=== PATIENT | male | born 1960 | race Caucasian/White ===

== ENCOUNTER → 2020-04-14 13:57 | Outpatient (BNVA) | payer OTHER, SELFPAY | PROVIDERS: PCP Internal Medicine; Visit Provider Hospitalist | DX: Z76.89 Persons encountering health services in other specified circumstances (principal) ==

== ENCOUNTER → 2020-06-02 12:48 | Outpatient (BNVA) | payer OTHER, SELFPAY | PROVIDERS: PCP Internal Medicine; Visit Provider Hospitalist ==

== ENCOUNTER → 2020-06-27 08:47 | Outpatient (REF) | payer OTHER, SELFPAY | LOC: HO.SL 08:47 | PROVIDERS: PCP Internal Medicine; Visit Provider Hospitalist | DX: G47.33 Obstructive sleep apnea (adult) (pediatric) (principal); R91.8 Other nonspecific abnormal finding of lung field | CPT/HCPCS: 95806 ==

== ENCOUNTER → 2020-09-01 14:37 | Outpatient (BNVA) | payer OTHER, SELFPAY | PROVIDERS: PCP Internal Medicine; Visit Provider Hospitalist | DX: R91.8 Other nonspecific abnormal finding of lung field (principal); G47.33 Obstructive sleep apnea (adult) (pediatric); J44.9 Chronic obstructive pulmonary disease, unspecified ==

== ENCOUNTER → 2021-02-23 10:22 | Outpatient (BNVA) | payer OTHER, SELFPAY | PROVIDERS: PCP Internal Medicine; Visit Provider Hospitalist | DX: G47.33 Obstructive sleep apnea (adult) (pediatric) (principal); J45.51 Severe persistent asthma with (acute) exacerbation; J33.9 Nasal polyp, unspecified; R91.8 Other nonspecific abnormal finding of lung field | CPT/HCPCS: J2930 ==

== ENCOUNTER → 2021-05-04 15:09 | Outpatient (BNVA) | payer OTHER, SELFPAY | PROVIDERS: PCP Internal Medicine; Visit Provider Hospitalist ==

== ENCOUNTER → 2022-05-24 13:54 | Outpatient (BNVA) | payer OTHER, SELFPAY | PROVIDERS: PCP Internal Medicine; Visit Provider Hospitalist | DX: Z13.89 Encounter for screening for other disorder (principal) ==

== ENCOUNTER 2023-03-19 10:54 | Outpatient (AMB) | payer OTHER, SELFPAY ==
[2023-03-19 11:15] VITALS: BP 110/60; PULSE 110; O2SAT 94; BMI 33.7
--- NOTE | 2023-03-19 11:15 | MHC.OFFVIS ---
Intake Vital Signs 03/19/23 11:15 Height 5 ft 7 in Weight 215 lb BMI 33.7 BP 110/60 Blood Pressure Location Rt brachial Position Sitting Pulse 110 H Pulse Source Pulse Oximeter Pulse Oximetry (%) 94 Oxygen Delivery Method Room Air Intake Visit Reasons: dyspnea Dynamiter Required: No Maintenance Shop Clerk: Maintenance Shop Clerk offered & declined Accompanied by: Spouse Allergies aspirin Allergy (Severe, Verified 03/19/23 11:20) Asthma NSAIDS (Non-Steroidal Anti-Inflamma Allergy (Severe, Verified 03/19/23 11:20) Asthma Medication List - Last Reconciled 03/19/23 by Maribell East LPN albuterol sulfate 90 mcg/actuation 2 puffs PO Q6H PRN beclomethasone dipropionate 80 mcg/actuation (QNASL) 2 sprays intranasal DAILY benralizumab (Fasenra Pen) 30 mg subcut Q8W epinephrine (EpiPen 2-Bart) 0.3 mg (0.3 mL) IM Q10M PRN 30 days ffbzuiylcux-invqgivgp-hfhxfroy 200-62.5-25 mcg (Trelegy Ellipta) 1 ea PO DAILY HPI dyspnea HPI Details Sj is a pleasant 62 year old male, never smoker, with underlying asthma. At baseline, is well controlled on Trelegy, Qnasl, Fasenra and albuterol MDI/neb. Today he presents for an acute visit. He reports symptoms of nasal congestion, chest tightness, wheezing, dyspnea started last week, began improving and then worsened the last few days, now with chest congestion and nonproductive cough. He reports fever last night of 101 and using nebulizer q 4 hours with partial relief. Of note, he has been using albuterol. He reports daughter with similar symptoms. [facility] Medical History (Updated 03/19/23 @ 11:59 by Anjali Gordon NP) Pulmonary nodules Prostate cancer Nasal polyps Asthma (Updated 03/19/23 @ 11:25 by Maribell East LPN) Patient Tobacco Use Status: Never used Tobacco Smoked in Last 30 Days: No Review of Systems Const Denies chills, Denies excessive sweating, Denies headache(s) and Denies night sweats Eyes Denies dry eyes, Denies irritation and Denies itchy eyes ENT Reports Normal hearing present, Denies headache(s), Denies post nasal drip and Denies sore throat Card Denies chest pain, Denies chest pain at rest, Denies chest pain with activity, Denies claudication, Denies leg edema, Denies orthopnea and Denies paroxysmal nocturnal dyspnea Resp Denies excessive phlegm production, Denies pain on inspiration, Denies pain with cough and Denies stridor Musc Denies myalgias Neuro Reports Normal hearing present and Denies headache(s) Endo Denies excessive sweating Adriel/Lymph Denies lymphadenopathy Aller/Immun Denies itchy eyes and Denies seasonal rhinorrhea Physical Exam Vital Signs: Last Vital Signs Pulse 110 H 03/19/23 11:15 BP 110/60 03/19/23 11:15 Pulse Ox 94 03/19/23 11:15 Oxygen Delivery Method Room Air 03/19/23 11:15 BMI result Body Mass Index 33.7 Const General: cooperative, no acute distress, well developed and alert Orientation/consciousness: patient oriented x3 Limitations: no limitations HEENT Head: Yes normal to inspection, Yes normocephalic and Yes atraumatic Ears: hearing grossly normal bilaterally and external ears normal Eyes General: appearance normal, both eyes and all related structures Eyelids: Yes eyelids normal Sclerae: sclerae normal EOM: EOMs intact bilaterally Neck Neck: Yes normal visual inspection and Yes no lymphadenopathy Lymphatic: no lymphadenopathy noted Chest Chest palpation & inspection: normal inspection of the chest Resp Other: rhonchi and wheezing throughout, improved with duoneb Effort & Inspection: normal respiratory effort, able to speak in complete sentences, no audible wheezes, no stridor, not tachypneic, no tripod positioning and no use of accessory muscles Cardio Jugular venous distension: no JVD Rhythm: regular rhythm Skin Other: warm, dry General skin exam: no rashes or lesions noted Neuro General: patient oriented x3 Cranial nerves: Yes Normal hearing present Cognition (Neuro): normal cognition Gait exam (Neuro): Normal gait present Extrem General: Yes normal to inspection, Yes capillary refill normal, Yes no clubbing, cyanosis or edema and Yes no pedal edema Psych Appearance: grossly normal and well kempt Speech and movement: Normal speech and movement present and Clear speech present Affect: normal affect Attitude: cooperative Thought process: Normal thought process present Thought content: Normal thought content present Insight: Good insight present (Psych) Judgement: Good judgement present (Psych) Office Procedures Nebulizer Treatment Nebulizer Treatment 58340-Oclefywgd/MDI RX initial, or Nebulizer Subsequent Treatment Office Meds methylprednisolone sod suc(PF) 125 mg/2 mL solution for injection Performing Provider: Anjali Gordon NP Performing Location: [facility] [place] Pulmonology Services-[facility] Administered by: Maribell East LPN on 03/19/23 11:45 Dose Route Admin Location Dispensed Lot Number Expiration Date [facility] Certified Fire Investigator 125 mg IM right buttock 2 mL [id number] 07/26/25 3403-6116-21 [employer] ipratropium 0.5 mg-albuterol 3 mg (2.5 mg base)/3 mL nebulization soln Performing Provider: Anjali Gordon NP Performing Location: [facility] [place] Pul[facility]ology [facility] Administered by: Maribell East LPN on 03/19/23 11:45 Dose Route Admin Location Dispensed Lot Number Expiration Date [place] Certified Fire Investigator 3 mL inhalation 3 mL [id number] 01/25/25 08354-380-97 [employer] Assessment & Plan Assessment & Plan (1) Asthma: Code(s): J45.909 - Unspecified asthma, uncomplicated Qualifiers: Asthma severity: severe Asthma persistence: persistent Asthma complication type: uncomplicated Qualified Code(s): J45.50 - Severe persistent asthma, uncomplicated Plan Sj presents with an acute exacerbation with bronchitic symptoms. Respiratory exam improved after duoneb and patient reported symptomatic relief. Gave solumedrol in office. Will treat with prednisone and doxycycline. Will also send in current prescription of duoneb. Encouraged patient to obtain CXR today and continue current regimen of Fasenra along with Trelegy.Patient aware if symptoms do not improve to call and if worsen seek emergent care. All questions were answered and patient is in agreement of plan. Will follow up for regularly scheduled appointment with Dr. Zimmerman or sooner if needed. Orders: Orders AMB Nebulizer Treatment Today J45.909 - Unspecified asthma, uncomplicated, R05.9 - Cough, unspecified XR chest 2V Today R05.9 - Cough, unspecified AMB Methylprednisolone Injection Today J45.909 - Unspecified asthma, uncomplicated, R05.9 - Cough, unspecified Medications: New ipratropium-albuterol 0.5 mg-3 mg(2.5 mg base)/3 mL 3 mL inhalation Q6H PRN 90 mL 0RF wheezing doxycycline hyclate 100 mg PO BID 14 tabs 0RF Refilled albuterol sulfate 90 mcg/actuation 2 puffs PO Q6H PRN 34 grams 3RF for wheezing prednisone PO daily; Take 6 tabs daily x 3 days, then 5 tabs x 3 days, then 4 tabs x 3 days, then 3 tabs x 3 days, then 2 tabs daily x 3 days, then 1 tab x 3 days to complete. 18 days 63 tabs 0RF Coding Level of Care Code Est Pt Level 4 (69674) Diagnoses Severe persistent asthma without complication J45.50 Asthma severity: severe Asthma persistence: persistent Asthma complication type: uncomplicated CPT Codes Nebulizer Treatment - Nebulizer Treatment, initial or subsequent: 02023-Kedbypwzd/MDI RX initial, or Nebulizer Subsequent Treatment ([id number])
== END 2023-03-19 12:04 | disposition home or self-care (01) ==
PROVIDERS: PCP Internal Medicine; Visit Provider Nurse Practitioner Family
DX: J45.909 Unspecified asthma, uncomplicated (principal); R05.9 Cough, unspecified; J45.50 Severe persistent asthma, uncomplicated
CPT/HCPCS: 99214

== ENCOUNTER → 2023-03-19 10:54 | Outpatient (BNVA) | payer OTHER, SELFPAY | PROVIDERS: PCP Internal Medicine; Visit Provider Nurse Practitioner Family | DX: J45.50 Severe persistent asthma, uncomplicated (principal); Z79.899 Other long term (current) drug therapy | CPT/HCPCS: 94640; J2930 ==

== ENCOUNTER 2024-03-08 15:47 | Outpatient (REF) | payer OTHER, SELFPAY | END 2024-03-08 15:48 | disposition home or self-care (01) | LOC: HO.XRAY 15:47 | PROVIDERS: PCP Internal Medicine; Visit Provider Hospitalist | DX: J40 Bronchitis, not specified as acute or chronic (principal) | CPT/HCPCS: 71046 ==

== ENCOUNTER 2024-04-26 13:31 | Outpatient (AMB) | payer OTHER, SELFPAY ==
--- OUTSIDE RECORDS SUMMARY | 2024-04-26 13:35 | XMS_ITS ---
Author Organization [facility] Address [address] [place] [address] Care Team Providers Care Figurine Maker Name Role Phone GAVIN DUEÑAS Unavailable [phone] REASON FOR REFERRAL Reason Fatigue with [facility] Diagnosis 1 SOB (shortness of br eath) (R06.02) Diagnosis 2 Fatigue, unspecified type (R53.83) Referral Organization [facility] Referring Provider First Name GAVIN Referring Provider Last Name SPENSER Referring Provider Speciality Internal M edicine Referred Provider Specialty Cardiology General Notes [facility] [place], [address] [place] [id number], , FAX [phone] Clinical Notes Kaitlin Romero 2023 09:20:32 AM >all referral info sent to [facility], copy mailed to pt for record and FU, Kaitlin Romero 10/27/2023 09:55:44 AM >[facility] no longer accepting [facility], referral resent to [facility], called pt LVM with update, Lorene Bone 12/25/2023 09:14:43 AM > The patient was seen on 11/28/2023 Referral Priority Routine REASON FOR VISIT Lab review Encounters Encounter Location Date Provider Diagnosis [facility] [address] [place] [address] 10/21/2023 GAVIN DUEÑAS PLAN OF TREATMENT Referrals Referral Date Details Fatigue with [facility] Next Appt Details Provider Name:GAVIN DUEÑAS, 05/17/2024 03:30:00 PM, [address], [place], [address], Progress Notes * ALEXANDER BEARDOB:1960 (63 yo M)Acc No.[id number]:10/21/2023 Patient:??LION BEARD :1960?Age:63 Y?Sex:Ginny salter Address:[address] [place] [id number] Subjective: * Chief Complaints: * ?Lab review * Medical History:?? * Surgical History:?? * Hospitalization/Major Diagno stic Procedure:?? * Medications:?? Objective: Assessment: Plan: * Treatment: * Procedure Codes:?? * true * Date:?? Consultation Request Notes Referral Date Referring Provider Referred Provider Not vika 10/23/2023 GAVIN DUEÑAS , Fatigue with [facility]
--- OUTSIDE RECORDS SUMMARY | 2024-04-26 13:35 | XMS_ITS ---
Author Organization [facility] Address [address] [place] [address] Care Team Providers Care Resource Economist Name Role Phone KAVYA MANRIQUE Unavailable [phone] ALLERGIES No Known Allergies REASON FOR VISIT pt presents in office today for routine follow up with completed labs for review MEDICATIONS Medication SIG (Take, Route, Frequency, Duration) Notes Start Date End Date Status Probiotic 250 MG as directed Orally Active Multi Complete - as directed Orally Active Claritin 10 MG 1 tablet Orally Once a day Active Fasenra 30 MG/ML 1 null Subcutaneous monthly Active Trelegy Ellipta 100-62.5-25 MCG/INH 1 puff Inhalation Once a day Active Rosuvastatin Calcium 5 MG 1 tablet Orally Once a day for 30 days 05/12/2023 Not-Taking Qnasl 80 MCG/ACT 2 sprays in each nostril Nasally Once a day Active ProAir HFA 108 (90 Base) MCG/ACT 2 puffs as needed Inhalation every 6 hrs for 30 days Active Fish Oil 645 MG as directed Orally Active SOCIAL HISTORY Tobacco Use: Social History Observation Description Date Details (start date - stop date) Never Smoker NA - NA Sex Assigned At : Social History Observation Description Sex Assigned At Unknown Tobacco Use/Smoking Question Answer Notes Are you a nonsmoker VITAL SIGNS Heart Rate 75 /min 11/10/2023 Blood pressure systolic 134 mm Hg 11/10/19 24 Blood pressure diastolic 98 mm Hg 024 Weight 213.4 lbs 11/10/2023 BMI 33.42 kg/m2 11/10/2023 Height 67 in 11/10/2023 Oximetry 97 % 11/10/2023 Encounters Encounter Location Date Provider Diagnosis [facility] [address] [facility] [address] 11/10/2023 KAVYA MANRIQUE Hyperlipidemia, unspecified E78.5 ; Essential (primary) hypertension I10 and Other asthma J45.998 ASSESSMENTS Encounter Date Diagnosis Assessment Notes Treatment Notes Treatment Clinical Notes Section Notes 11/10/2023 Hyperlipidemia, unspecified (ICD-10 - E78.5) Patient with no new cardiovascular workup. Asthma hypertension hyperlipidemia currently stable and will continue current medications along with diet and exercise. He is now coping better with the passing of his mother and will deal with that through prayer exercise and meditation 11/10/2023 Essential (primary) hypertension (ICD-10 - I10) Patient with no new cardiovascular workup. Asthma hypertension hyperlipidemia currently stable and will continue current medications along with diet and exercise. He is now coping better with the passing of his mother and will deal with that through prayer exercise and meditation 11/10/2023 Other asthma (ICD-10 - J45.998) Patient with no new cardiovascular workup. Asthma hypertension hyperlipidemia currently stable and will continue current medications along with diet and exercise. He is now coping better with the passing of his mother and will deal with that through prayer exercise and meditation PLAN OF TREATMENT Pending Test Test Name Order Date LIPID PANEL, STANDARD 11/10/2023 COMPREHENSIVE METABOLIC PANEL 11/10/2023 CBC (INCLUDES DIFF/PLT) 11/10/2023 URINALYSIS, COMPLETE 11/10/2023 Next Appt Details Provider Name:KAVYA MANRIQUE, 05/17/2024 03:30:00 PM, [address] [facility], [place], [address], Progress Notes * ALEXANDER BEARDOB:1960 (63 yo M)Acc No.[id number]:11/10/2023 Progress Notes Patient:??LION BEARD Provider:??Kavya Manrique MD :1960?Age:63 Y?Sex:Ginny salter Date:11/10/2023 Address:[address] [place], [place] [id number] Subjective: * Chief Complaints: * ?1. Pt presents in offi ce today for routine follow up with completed labs for review. * HPI: ?Constitutional:? Patient seen and examined. Chart was reviewed and edited. Medications were reviewed. Problem list reviewed updated. Allergies reviewed. Social history reviewed. Reviewed recent labs and imaging business solutions consultant notes. Took permission to exam and offered contracting engineer. Patient past medical history of asthma currently stable complaint to me with fatigue and shortness of breath awaiting cardiovascular follow-up. His recent blood work was normal it was discussed with him in significant detail. Did could be a psychological reason for his shortness of breath with anxiety given the fact that his mother and he did not do well with it he has not been going to the gym which she should start doing. In the absence of pain I think he can continue to exercise but not push himself to severe exertion it should be mild to moderate exertion. * ROS:?All Other Systems:?Review of Systems (ROS)??All others negative except those mentioned in HPI.? * Medical History:??Prostate c ancer, Asthma. * Surgical History:??prostate cancer surgery , sinus surgery 2003 , spleen removed at age 17 . * Family History:??Father: keily raza, diagnosed with Unspecified essential hypertension.??Mother: alive.??3 brother(s) , 3 sister(s) . 1 daughter(s) . .?? siblings hx of dm, htn. * Social History:?Tobacco Use:??Tobacco Use/Smoking??Are you a??nonsmoker.?? * Medications:??Taking Fish Oi l 645 MG Capsule as directed Orally , Taking Probiotic 250 MG Capsule as directed Orally , Taking Multi Complete - Capsule as directed Orally , Taking Claritin 10 MG Tablet 1 tablet Orally Once a day , Taking Fasenra 30 MG/ML Solution Prefilled Syringe 1 null Subcutaneous , Notes to Pharmacist: monthly, Taking Trelegy Ellipta 100-62.5-25 MCG/INH Aerosol Powder Breath Activated 1 puff Inhalation Once a day , Taking Qnasl 80 MCG/ACT Aerosol Solution 2 sprays in each nostril Nasally Once a day , Taking ProAir HFA 108 (90 Base) MCG/ACT Aerosol Solution 2 puffs as needed Inhalation every 6 hrs , Not-Taking Rosuvastatin Calcium 5 MG Tablet 1 tablet Orally Once a day , Discontinued Celecoxib 200 MG Capsule 1 capsule with food Orally twice a day , Medication List reviewed and reconciled with the patient * Allergies:??N.K.D.A. Objective: * Vitals:??HR:75/min, BP:134/9 8mm Hg, Wt:213.4lbs, BMI:33.42Index, Ht: 67 in, Oxygen sat %:97%. * Physical Examination:?Patient seen and examined ?Vitals noted ?Head and ENT: PERRLA EOMI, neck supple, good range of motion, thyroid within normal limits. No sinus tenderness. ?Cardiovascular system S1 and S2 with no murmur or gallop or rubs. ?Lungs: clear to percussion and auscultation ?Abdomen: soft positive bowel sounds no hepatosplenomegaly ?Extremities: no edema. ?Neuro: No gross deficit, sensation and power intact. . Reflexes appear normal ?Gait: appears age-appropriate ?Skin: exam shows no rashes. Assessment: * Assessment: 1.??Hyperlipidemia, unspecif ied - E78.5??2.??Essential (primary) hypertension - I10??3.??Other asthma - J45.998?? Patient with no new cardiova scular workup. Asthma hypertension hyperlipidemia currently stable and will continue current medications along with diet and exercise. He is now coping better with the passing of his mother and will deal with that through prayer exercise and meditation. Plan: * Treatment: 2.??Essential (primary) hype rtension?LAB: COMPREHENSIVE METABOLIC PANEL ?LAB: CBC (INCLUDES DIFF/PLT) ?LAB: URINALYSIS, COMPLETE * Images: Billing Information: * Visit Code:?? 17387 Office Visit, Est Pt., Level 4. Modifiers: 25 * Procedure Codes:?? Care Plan Details* * Sign off status: Completed true * Provider:??Kavya Manrique MD Date:??11/09 History and Physical Notes * HPI (History of Present Illness) Category Sub-Category Detail Notes Category Not es Constitutional Patient seen and examined. Chart was reviewed and edited. Medications were reviewed. Problem list reviewed updated. Allergies reviewed. Social history reviewed. Reviewed recent labs and imaging business solutions consultant notes. Took permission to exam and offered contracting engineer. Patient past medical history of asthma currently stable complaint to me with fatigue and shortness of breath awaiting cardiovascular follow-up. His recent blood work was normal it was discussed with him in significant detail. Did could be a psychological reason for his shortness of breath with anxiety given the fact that his mother and he did not do well with it he has not been going to the gym which she should start doing. In the absence of pain I think he can continue to exercise but not push himself to severe exertion it should be mild to moderate exertion Physical Examination Category Sub-Category Detail Notes Section Note s Patient seen and examined Vitals noted Head and ENT: PERRLA EOMI, neck supple, good range of motion, thyroid within normal limits. No sinus tenderness. Cardiovascular system S1 and S2 with no murmur or gallop or rubs. Lungs: clear to percussion and auscultation Abdomen: soft positive bowel sounds no hepatosplenomegaly Extremities: no edema. Neuro: No gross deficit, sensation and power intact. . Reflexes appear normal Gait: appears age-appropriate Skin: exam shows no rashes
--- OUTSIDE RECORDS SUMMARY | 2024-04-26 13:35 | XMS_ITS | Patient Health Record ---
Author Organization [facility] Address [address] [place] [address] Care Team Providers Care Monogram Operator Name Role Phone GAVIN DUEÑAS Unavailable [phone] ALLERGIES No Known Allergies RESULTS Component Value Reference Range Notes Chest Routine 2 Views Reviewed date:10/17/2023 10:48:19 AM Interpretation: Performing Lab: Notes/Report: Original Ordering Provider: GAVIN DUEÑAS MD [facility] CBC With Differential/Platel et-[id number] Reviewed date:11/05/2023 10:44:58 AM Interpretation: Performing Lab:[facility], [address] [facility], [place], Phone - [phone], Director - Long Notes/Report: WBC 6.6 3.4-10.8 x10E3/uL RBC 5.09 4.14-5.80 x10E6/uL Hemoglobin 15.6 13.0-17.7 g/dL Hematocrit 46.1 37.5-51.0 % MCV 91 79-97 fL MCH 30.6 26.6-33.0 pg MCHC 33.8 31.5-35.7 g/dL RDW 13.6 11.6-15.4 % Platelets 209 150-450 x10E3/uL Neutrophils 41 Not Estab. % Lymphs 48 Not Estab. % Monocytes 11 Not Estab. % Eos 0 Not Estab. % Basos 0 Not Estab. % Immature Cells Neutrophils (Absolute) 2.7 1.4-7.0 x10E3/uL Lymphs (Absolute) 3.2 0.7-3.1 x10E3/uL Monocytes(Absolute) 0.7 0.1-0.9 x10E3/uL Eos (Absolute) 0.0 0.0-0.4 x10E3/uL Baso (Absolute) 0.0 0.0-0.2 x10E3/uL Immature Granulocytes 0 Not Estab. % Immature Grans (Abs) 0.0 0.0-0.1 x10E3/uL NRBC Hematology Comments: Sedimentation Rate-Mariselre n-[id number] Reviewed date:10/21/2023 01:54:05 PM Interpretation: Performing Lab:[facility] [place], [address] [place] [address], Phone - [phone], Director - Long Notes/Report: Sedimentation Rate-Deviergren 4 0-30 mm/hr Vitamin D, 80-Skcabls-[id number] Reviewed date:10/21/2023 01:54:05 PM Interpretation: [facility]forming [facility], [address] [place] [address], Phone - [phone], Director - Long Notes/Report: Vitamin D, 25-Hydroxy 43.7 30.0-100.0 ng/mL Vitamin D deficiency has been defined by the [place] [employer] and an Endocrine Society practice guideline as a level of serum 25-OH vitamin D less than 20 ng/mL (1,2). The Endocrine Society went on to further define vitamin D insufficiency as a level between 21 and 29 ng/mL (2). 1. IOM ([place] [employer]). 2010. Dietary reference intakes for calcium and D. [place]: The National Academies Press. 2. Shannan MF, Dennis [place], Chava GREEN, et al. Evaluation, treatment, and prevention of vitamin D deficiency: an Endocrine Society clinical practice guideline. JCEM. 2010; 96(7):1911-30. Lyme Disease Serology w/Refl ex-[id number] Reviewed date:10/21/2023 01:54:05 PM Interpretation: Performing Lab:[facility] [place], [address] [place] [address], Phone - [phone], Director - Long Notes/Report: Lyme Total Antibody MAHESH Negative Negative Lyme antibodies not detected. Reflex testing is not indicated. No laboratory evidence of infection with B. burgdorferi (Lyme disease). Negative results may occur in patients recently infected (less than or equal to 14 days) with B. burgdorferi. If recent infection is suspected, repeat testing on a new sample collected in 7 to 14 days is recommended. Lipid Panel-[id number] Reviewed date:11/05/2023 10:53:39 AM Interpretation: Performing Lab:[facility] [place], [address] [facility], [place], Phone - [phone], Director - Long Notes/Report: Cholesterol, Total 193 100-199 mg/dL Triglycerides 115 0-149 mg/dL HDL Cholesterol 43 >39 mg/dL VLDL Cholesterol Jameel 21 5-40 mg/dL LDL Chol Calc ([facility]) 129 0-99 mg/dL LDL Calc Comment: Comp. Metabolic Panel (14)-3 Reviewed date:11/05/2023 10:31:35 AM Interpretation: Performing Lab:[facility] [place], [address] [facility], [place], Phone - [phone], Director - Long Notes/Report: Glucose 92 70-99 mg/dL BUN 14 8-27 mg/dL Creatinine 0.85 0.76-1.27 mg/dL eGFR 99 >59 mL/min/1.73 BUN/Creatinine Ratio 16 10-24 Sodium 142 134-144 mmol/L Potassium 4.3 3.5-5.2 mmol/L Chloride 106 96-106 mmol/L Carbon Dioxide, Total 22 20-29 mmol/L Calcium 9.9 8.6-10.2 mg/dL Protein, Total 6.9 6.0-8.5 g/dL Albumin 4.4 3.9-4.9 g/dL Globulin, Total 2.5 1.5-4.5 g/dL Bilirubin, Total 0.7 0.0-1.2 mg/dL Alkaline Phosphatase 54 44-121 IU/L AST (SGOT) 25 0-40 IU/L ALT (SGPT) 30 0-44 IU/L PSA (Reflex To Free) (Serial )-[id number] Reviewed date:10/21/2023 01:54:14 PM Interpretation: Performing Lab:[facility] [place], [facility], [place], Phone - [phone], Director - Long Notes/Report: Prostate Specific Ag <0.1 0.0-4.0 ng/mL Brayan ECLIA methodology. . According to the [place] [employer], Serum PSA should decrease and remain at undetectable levels after radical prostatectomy. The AUA defines biochemical recurrence as an initial PSA value 0.2 ng/mL or greater followed by a subsequent confirmatory PSA value 0.2 ng/mL or greater. Values obtained with different assay methods or kits cannot be used interchangeably. Results cannot be interpreted as absolute evidence of the presence or absence of malignant disease. Reflex Criteria The percent free PSA is performed on a reflex basis only when the total PSA is between 4.0 and 10.0 ng/mL. REASON FOR REFERRAL Reason Fatigue with HFCCA Diagnosis 1 SOB (shortness of br eath) (R06.02) Diagnosis 2 Fatigue, unspecified type (R53.83) Referral Organization [facility] Referring Provider First Name NEDBIGG Referring Provider Last Name DUEÑAS Referring Provider Speciality Internal M edicine Referred Provider Specialty Cardiology General Notes [facility], [address] [facility], [place] [address], , FAX [phone] Clinical Notes Kaitlin Romero 2023 09:20:32 AM >all referral info sent to [facility], copy mailed to pt for record and FU, Kaitlin Romero 10/27/2023 09:55:44 AM >[facility] no longer accepting [facility], referral resent to [facility], called pt LVM with update, Lizandro Saltycresencio 12/25/2023 09:14:43 AM > The patient was seen on 11/28/2023 Referral Priority Routine MEDICATIONS Medication SIG (Take, Route, Frequency, Duration) Notes Start Date End Date Status Rosuvastatin Calcium 5 MG 1 tablet Orally Once a day for 30 days 05/12/2023 Not-Taking Qnasl 80 MCG/ACT 2 sprays in each nostril Nasally Once a day Active ProAir HFA 108 (90 Base) MCG/ACT 2 puffs as needed Inhalation every 6 hrs for 30 days Active Probiotic 250 MG as directed Orally Active Multi Complete - as directed Orally Active Fish Oil 645 MG as directed Orally Active Claritin 10 MG 1 tablet Orally Once a day Active Fasenra 30 MG/ML 1 null Subcutaneous monthly Active Trelegy Ellipta 100-62.5-25 MCG/INH 1 puff Inhalation Once a day Active SOCIAL HISTORY Tobacco Use: Social History Observation Description Date Details (start date - stop date) Never Smoker NA - NA Sex Assigned At : Social History Observation Description Sex Assigned At Unknown Tobacco Use/Smoking Question Answer Notes Are you a nonsmoker PROBLEMS Problem Type ICD Code Onset Dates Problem Status W/U Status Risk SNOMED Code Notes Problem Hyperlipidemia, unspecified (E78.5) Active confirmed Hyperlipidemia (54148573) Problem Essential (primary) hypertension (I10) Active confirmed 19559369 Problem Other asthma (J45.998) Active confirmed Asthma (049692757) Problem Left knee pain, unspecified chronicity (M25.562) Active confirmed 3200613049 Problem Anxiety (F41.9) Active confirmed 713371 02 Problem Fatigue, unspecified type (R53.83) Active confirmed 70532735 Problem Prostate cancer (C61) Active confirmed Malignant tumor of prostate (634958240) Problem SOB (shortness of breath) (R06.02) Active confirmed 967670369 Problem Pre-diabetes (R73.03) Active confirmed Prediabetes (355456759) Problem Stress reaction (F43.0) Active confirmed 03183403 VITAL SIGNS Heart Rate 75 /min 11/10/2023 Oximetry 97 % 11/10/2023 Blood pressure diastolic 98 mm Hg 11/10/2023 Height 67 in 11/10/2023 Blood pressure systolic 134 mm Hg 11/10/2023 Weight 213.4 lbs 11/10/2023 BMI 33.42 kg/m2 11/10/2023 Encounters Encounter Location Date Provider Diagnosis [facility] [address] [place] [address] 05/12/2023 TALBIGG DUEÑAS Pre-diabetes R73.03 ; Annual physical exam Z00.00 and Hyperlipidemia, unspecified E78.5 [facility] [address] [place] [address] 10/06/2023 TALAL DUEÑAS Prostate cancer C61 and Fatigue, unspecified type R53.83 [facility] [address] [facility] [address] [place] [address] 10/14/2023 TALAL DUEÑAS SOB (shortness of breath) R06.02 ; Upper back pain M54.9 and Prostate cancer C61 [facility] [address] [place] [address] 11/10/2023 TALBIGG DUEÑAS Hyperlipidemia, unspecified E78.5 ; Essential (primary) hypertension I10 and Other asthma J45.998 [facility] [address] [place] [address] 05/20/2023 GAVIN DUEÑAS [facility] [address] [place] [address] 10/02/2023 GAVIN DUEÑAS [facility] [address] [place] [address] 10/09/2023 GAVIN DUEÑAS [facility] [address] [place] [address] 10/21/2023 GAVIN DUEÑAS [address] [place] [address] 03/05/2024 GAVIN DUEÑAS ASSESSMENTS Encounter Date Diagnosis Assessment Notes Treatment Notes Treatment Clinical Notes Section Notes 05/12/2023 Annual physical exam (ICD-10 - Z00.00) Patient seen and examined. Comprehensive discussion was done on the following. 1. Nutrition: It is important to follow a healthy diet based on lots of vegetables and legumes and good fat. Avoid processed food and processed carbohydrates. Learn to prepare your own meals. Learn to read labels and avoid high fructose corn syrup, processed chemicals added to increase shelf life and preprepared meals. Avoid fast foods. Learn to eat slowly and plan meals for a week. Try to count calories and be mindful off daily calorie intake. Get into the habit of keeping an eye on your weight by using an appropriate scale. Learn to log exercise and discussed fitness Apps like [employer] which can help keep log off calories taken versus calories burned. Local food should be preferred. Discussed Dirty Dozen Versus Clean Fifteen. Discussed healthy supplements like fish oil, Tumeric, Curcumin, Melatonin, Resveratrol, Probiotics, Vitamin-D, Alpha-Lipoic acid, Vitamin-D and coconut oil. 2. It is important to exercise regularly. Is a good habit to walk at least 30-45 minutes a day. Gentle weightlifting with standard precautions to protect the back. Finding activity like cycling or hiking and get into the habit of engaging in it. Stretching before and after the exercises important. It is also important to contact me if there are any problems like shortness of breath, chest pain, back pain and joint or muscle pain associated with the exercise. 3. Discussed age appropriate screening guidelines. Colonoscopy needs to start at age 50 with stool for occult blood as appropriate. There is a new test that can test for genetic abnormalities in the stool sample. This would not replace a colonoscopy but could be used as a screening tool for patients who do not want a colonoscopy. We discussed the importance of early detection of colon cancer. 4. Discussed current PSA screening. PSA screening can be done in most patients between age 50 and 65. However early detection of prostate cancer needs to carefully be balanced with complications with treatment. These include incontinence, impotence etc. Each patient should decide if they would like to have this test. 5. Discussed safe driving and no use of smart phone while driving 6. Age-appropriate immunizations were discussed. A tetanus booster is needed every 10 years. Flu vaccine is recommended every year just before the start of the flu season. Shingles vaccine is recommended after age 50 but not all insurances cover it. Pneumonia vaccine is given after age 65 unless there are certain comorbidities for which it is started earlier. 7. Diagnostic labs were discussed. These could include CBC CMP and lipids with fasting blood glucose and insulin levels. Vitamin D and hemoglobin A1c testing might be appropriate. 05/12/2023 Pre-diabetes (ICD-10 - R73.03) Patient seen and examined. Comprehensive discussion was done on the following. 1. Nutrition: It is important to follow a healthy diet based on lots of vegetables and legumes and good fat. Avoid processed food and processed carbohydrates. Learn to prepare your own meals. Learn to read labels and avoid high fructose corn syrup, processed chemicals added to increase shelf life and preprepared meals. Avoid fast foods. Learn to eat slowly and plan meals for a week. Try to count calories and be mindful off daily calorie intake. Get into the habit of keeping an eye on your weight by using an appropriate scale. Learn to log exercise and discussed fitness Apps like Hot Hotels which can help keep log off calories taken versus calories burned. Local food should be preferred. Discussed Dirty Dozen Versus Clean Fifteen. Discussed healthy supplements like fish oil, Tumeric, Curcumin, Melatonin, Resveratrol, Probiotics, Vitamin-D, Alpha-Lipoic acid, Vitamin-D and coconut oil. 2. It is important to exercise regularly. Is a good habit to walk at least 30-45 minutes a day. Gentle weightlifting with standard precautions to protect the back. Finding activity like cycling or hiking and get into the habit of engaging in it. Stretching before and after the exercises important. It is also important to contact me if there are any problems like shortness of breath, chest pain, back pain and joint or muscle pain associated with the exercise. 3. Discussed age appropriate screening guidelines. Colonoscopy needs to start at age 50 with stool for occult blood as appropriate. There is a new test that can test for genetic abnormalities in the stool sample. This would not replace a colonoscopy but could be used as a screening tool for patients who do not want a colonoscopy. We discussed the importance of early detection of colon cancer. 4. Discussed current PSA screening. PSA screening can be done in most patients between age 50 and 65. However early detection of prostate cancer needs to carefully be balanced with complications with treatment. These include incontinence, impotence etc. Each patient should decide if they would like to have this test. 5. Discussed safe driving and no use of smart phone while driving 6. Age-appropriate immunizations were discussed. A tetanus booster is needed every 10 years. Flu vaccine is recommended every year just before the start of the flu season. Shingles vaccine is recommended after age 50 but not all insurances cover it. Pneumonia vaccine is given after age 65 unless there are certain comorbidities for which it is started earlier. 7. Diagnostic labs were discussed. These could include CBC CMP and lipids with fasting blood glucose and insulin levels. Vitamin D and hemoglobin A1c testing might be appropriate. 10/06/2023 Prostate cancer (ICD-10 - C61) Patient is comin g in with fatigue. Differential diagnosis is broad and could be statin induced myopathy although unlikely as it has persisted metastatic prostate cancer coronary artery disease and cardiomyopathy obstructive sleep apnea hypothyroidism Lyme disease vitamin D deficiency etc. we have initiated blood work referred to cardiology set up sleep study and will follow-up discussed in detail with the patient and 10/14/2023 SOB (shortness of breath) (ICD-10 - R06.02) 1. SOB : Patient has complaints of intermittent L shoudler pain and SOB for alissa past 2 months. Start Celebrex 200 mg bid x10 days for the pain. 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 Cardiac involvement was considered Patient had a negative EKGWe will continue to consider it in the differential diagnosis and will monitor the patient's symptoms.Patient should also complete the blood work that has been ordered for him Follow up in office in 2 months.. 11/10/2023 Hyperlipidemia, unspecified (ICD-10 - E78.5) Patient [...] with that through prayer exercise and meditation 10/14/2023 Upper back pain (ICD-10 - M54.9) 1. SOB : Patient has complaints of intermittent L shoudler pain and SOB for alissa past 2 months. Start Celebrex 200 mg bid x10 days for the pain. 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 Cardiac involvement was considered Patient had a negative EKGWe will continue to consider it in the differential diagnosis and will monitor the patient's symptoms.Patient should also complete the blood work that has been ordered for him Follow up in office in 2 months.. 10/06/2023 Fatigue, unspecified type (ICD-10 - R53.83) Patient is comin g in with fatigue. Differential diagnosis is broad and could be statin induced myopathy although unlikely as it has persisted metastatic prostate cancer coronary artery disease and cardiomyopathy obstructive sleep apnea hypothyroidism Lyme disease vitamin D deficiency etc. we have initiated blood work referred to cardiology set up sleep study and will follow-up discussed in detail with the patient and 05/12/2023 Hyperlipidemia, unspecified (ICD-10 - E78.5) Patient seen and examined. Comprehensive discussion was done on the following. 1. Nutrition: It is important to follow a healthy diet based on lots of vegetables and legumes and good fat. Avoid processed food and processed carbohydrates. Learn to prepare your own meals. Learn to read labels and avoid high fructose corn syrup, processed chemicals added to increase shelf life and preprepared meals. Avoid fast foods. Learn to eat slowly and plan meals for a week. Try to count calories and be mindful off daily calorie intake. Get into the habit of keeping an eye on your weight by using an appropriate scale. Learn to log exercise and discussed fitness Apps like Hot Hotels which can help keep log off calories taken versus calories burned. Local food should be preferred. Discussed Dirty Dozen Versus Clean Fifteen. Discussed healthy supplements like fish oil, Tumeric, Curcumin, Melatonin, Resveratrol, Probiotics, Vitamin-D, Alpha-Lipoic acid, Vitamin-D and coconut oil. 2. It is important to exercise regularly. Is a good habit to walk at least 30-45 minutes a day. Gentle weightlifting with standard precautions to protect the back. Finding activity like cycling or hiking and get into the habit of engaging in it. Stretching before and after the exercises important. It is also important to contact me if there are any problems like shortness of breath, chest pain, back pain and joint or muscle pain associated with the exercise. 3. Discussed age appropriate screening guidelines. Colonoscopy needs to start at age 50 with stool for occult blood as appropriate. There is a new test that can test for genetic abnormalities in the stool sample. This would not replace a colonoscopy but could be used as a screening tool for patients who do not want a colonoscopy. We discussed the importance of early detection of colon cancer. 4. Discussed current PSA screening. PSA screening can be done in most patients between age 50 and 65. However early detection of prostate cancer needs to carefully be balanced with complications with treatment. These include incontinence, impotence etc. Each patient should decide if they would like to have this test. 5. Discussed safe driving and no use of smart phone while driving 6. Age-appropriate immunizations were discussed. A tetanus booster is needed every 10 years. Flu vaccine is recommended every year just before the start of the flu season. Shingles vaccine is recommended after age 50 but not all insurances cover it. Pneumonia vaccine is given after age 65 unless there are certain comorbidities for which it is started earlier. 7. Diagnostic labs were discussed. These could include CBC CMP and lipids with fasting blood glucose and insulin levels. Vitamin D and hemoglobin A1c testing might be appropriate. 10/14/2023 Prostate cancer (ICD-10 - C61) 1. SOB : Patient has complaints of intermittent L shoudler pain and SOB for alissa past 2 months. Start Celebrex 200 mg bid x10 days for the pain. 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 Cardiac involvement was considered Patient had a negative EKGWe will continue to consider it in the differential diagnosis and will monitor the patient's symptoms.Patient should also complete the blood work that has been ordered for him Follow up in office in 2 months.. 11/10/2023 Other asthma (ICD-10 - J45.998) Patient with no new cardiovascular workup. Asthma hypertension hyperlipidemia currently stable and will continue current medications along with diet and exercise. He is now coping better with the passing of his mother and will deal with that through prayer exercise and meditation PLAN OF TREATMENT Pending Test Test Name Order Date X ray : Chest 10/14/2023 EKG 03/15/2022 CBC (COMPLETE BLOOD COUNT) 02/28/2020 CBC (COMPLETE BLOOD COUNT) 12/01/2018 CBC (COMPLETE BLOOD COUNT) WITH DIFF COMPREHENSIVE METABOLIC PANEL 12/17/2022 COMPREHENSIVE METABOLIC PANEL 12/01/2018 LIPID PANEL 12/01/2018 LIPID PANEL 02/28/2020 LIPID PANEL 12/17/2022 URINALYSIS W/REFLEX CULTURE 12/17/2022 URINALYSIS, COMPLETE 02/28/2020 URINALYSIS, COMPLETE 12/01/2018 XR Knee 4+ Views LT 05/30/2021 XR Ribs w Chest 3+ Views RT 05/08/2021 LIPID PANEL, STANDARD 09/21/2021 LIPID PANEL, STANDARD 03/15/2022 LIPID PANEL, STANDARD 09/11/2022 LIPID PANEL, STANDARD 05/12/2023 LIPID PANEL, STANDARD 11/10/2023 COMPREHENSIVE METABOLIC PANEL 11/10/2023 COMPREHENSIVE METABOLIC PANEL 03/15/2022 COMPREHENSIVE METABOLIC PANEL 05/12/2023 COMPREHENSIVE METABOLIC PANEL 09/21/2021 CBC (H/H, RBC, INDICES, WBC, PLT) 2020 CBC (INCLUDES DIFF/PLT) 09/21/2021 CBC (INCLUDES DIFF/PLT) 05/12/2023 CBC (INCLUDES DIFF/PLT) 03/15/2022 CBC (INCLUDES DIFF/PLT) 11/10/2023 URINALYSIS, COMPLETE 11/10/2023 URINALYSIS, COMPLETE 09/21/2021 URINALYSIS, COMPLETE 03/15/2022 SED RATE BY MODIFIED DEVIERGREN 10/06/19 24 HEMOGLOBIN A1c 03/15/2022 HEMOGLOBIN A1c 09/21/2021 HEMOGLOBIN A1c 09/11/2022 PSA (FREE AND TOTAL) 10/06/2023 PSA (FREE AND TOTAL) 03/15/2022 VITAMIN D,25-OH,TOTAL,IA 10/06/2023 LYME AB SCREEN 10/06/2023 Next Appt Details Provider Name:GAVIN DUEÑAS, 05/17/2024 03:30:00 PM, [address], [place], [address], Insurance Providers Payer Name Payer Address Payer Phone Subscriber Number Group Number Insured Name Patient Relationship to Insured Coverage Start Date Coverage End Date [facility] [address] [place] [address] [id number] LION BEARD Self - patient is the insured 3 MEDICAL (GENERAL) HISTORY Medical History History ICD Code prostate cancer asthma Surgical History Surgery Date(Month/Year) prostate cancer surgery sinus surgery 2003 spleen removed at age 17
--- OUTSIDE RECORDS SUMMARY | 2024-04-26 13:35 | XMS_ITS ---
Author Organization [employer] [facility] Address [address] [place] [address] Care Team Providers Care Actuarial Science Professor Name Role Phone GAVIN DUEÑAS Unavailable [phone] REASON FOR VISIT sweating profusely and colds Encounters Encounter Location Date Provider Diagnosis [address] [address] 03/05/2024 GAVIN DUEÑAS PLAN OF TREATMENT Next Appt Details Provider Name:GAVIN DUEÑAS, 05/17/2024 03:30:00 PM, [address], [place], [address], Progress Notes * CHIRAG JETHROJAISONOB:1960 (63 yo M)Acc No.[id number]:03/05/2024 Patient:??LION BEARD :1960?Age:63 Y?Sex:Ginny salter Address:[address] [place] [address] * true * Date:??
[2024-04-26 13:39] VITALS: BP 102/74; PULSE 66; O2SAT 94; BMI 33.5
--- NOTE | 2024-04-26 13:39 | A.OFFVIS_ITS ---
Vital Signs 04/26/24 13:39 Height 5 ft 7 in Weight 213 lb 13.574 oz BMI 33.5 BP 102/74 Blood Pressure Location Lt brachial Position Sitting Pulse 66 Pulse Source Pulse Oximeter Pulse Oximetry (%) 94 Oxygen Delivery Method Room Air Intake Visit Reasons: Asthma Intake Note: pt needs refill on duoneb [place] [employer] Carrier Required: No Allergies aspirin Allergy (Severe, Verified 04/26/24 13:42) Asthma NSAIDS (Non-Steroidal Anti-Inflamma Allergy (Severe, Verified 04/26/24 13:42) Asthma HPI Comments Details: The patient is a 63 y/o man with severe persistent asthma, chronic rhinitis and nasal polyposis. Overall he is still having hard time with wheezing. He did have some sick contacts in the home. Started developing worsening shortness of breath and cough. Has been using his inhaler more regularly. Has not required prednisone. He did follow up with Allergy and immunology. The recommendation was for him to stop the Nucala and start dupixent. Otherwise he has not had any recent imaging studies or blood work to review. 10/22/2019 the patient is here for pulmonary follow-up visit. He is feeling better. However, several weeks ago he has significant worsening respiratory symptoms. He also has significant muscle achiness and headaches and sore throat. He also had some subjective fevers. Which is after given self the injection with Dupixent. She was unsure frozen reaction to the medication. His symptoms have improved. He continue the Dupixent now for about a month. If he continues to have symptoms or worsening side effects he will consider stopping the medication. He was swab for COVID-19 infection was negative. At this point will retest his antibiotics to make sure. He could not take the Bevespi because he was not cover. Therefore he is not taking a long-acting beta agonist or a long-acting muscarinic antagonist. Will have to optimize respiratory therapy specially since he continues to have wheezing. 04/14/2020 The patient is here for a pulmonary follow up visit. Having worsening asthma symptoms. Has been off Prednisone, The patient has been responding partially to the Fasenra. Tried and failed Dupixent/Nucala/Xolair. Has been using the Symbicort. Has required increased nebulized therapy on a daily basis. Will further optimize his respiratory therapy. 09/01/2020 the patient is here for pulmonary follow-up visit. Overall the patient has been doing better. He denies any worsening respiratory symptoms. Jack lora has been able to exercise regularly. He continues on the Fosenra injections. In addition to that he has been using Symbicort. He was started on Daliresp during the last visit as well. He appears to be responding well to the current respiratory regimen will continue. In the meantime again he appears to be sleeping well. We did talk about his sleep study demonstrating mild sleep apnea. The patient will continue positional therapy in holding off CPAP at this time. In regards of his CT scan of the chest that he had recently it demonstrated a calcified nodule consistent with granuloma but otherwise is without any other significant findings. 02/23/2021 the patient is here for a pulmonary follow-up visit. For the last month has been having increasing wheezing and chest tightness. Moderate severity. He did going sees managing attorney who recommended prednisone. He is reluctant to use prednisone at this time. He continues uses Symbicort and also has been using the Daliresp. He continues on the Fasenra injection which appears to be very affecting beneficial for him. He still has significant allergies in his household that he cannot get rid of at this time. We did talk about other biologic therapies to consider in the future including TSLP inhibitors. In the meantime I will be switching the patient over to Trelegy from Symbicort to see if this is more effective for him. The patient also should consider prednisone but since he is reluctant I will provide him with Solu-Medrol IM x 1 to help him improve well the trilogy inhaler is taking affect. 05/04/2021 the patient is here for pulmonary follow-up visit. Overall he is doing better today. Yesterday he was having increasing chest tightness and wheezing. He was not sure if she was going to get any better. He did use a nebulizer with very good effect. his symptoms improved. The patient overall has been responding well to the Fasenra injections. He continues to get that every 2 to months. We will consider changing to a different biologic regimen if a better 1 becomes available. At this time Fasenra has been helpful but has not been completely improving his symptoms. I had sent a prescription for Daliresp during the last visit. The patient does have chronic bronchitis in frequent exacerbations requiring prednisone. Therefore, Daliresp will be a good option for him in order to decrease the need for prednisone. 11/23/2021 the patient is here for a pulmonary follow-up visit. He still continues to have this is good days and bad days. He does continue to use all his respiratory therapy with good adherence. Although the response to therapy she is not completely. He has been using the Fasenra and has been helping him. However, he continues to be symptomatic. We spoke the last time about considering a change to an T STUDENT SERVICES REP inhibitor. His managing attorney also recommended consider something different because he continues to be very symptomatic. On examination he has significant expiratory wheezing. He does continue to exercise regularly however. At this point the patient is not on prednisone. From a cancer standpoint he has followed up with his urologist and everything st able as well. Will go ahead and start him on additional inhaled cortical steroids that he can use in conjunction with his Trelegy in order to optimize his respiratory capacity. If he continues to be symptomatic the next time he returns in 6 months we will at that point consider switching him to a different biologic medication. 05/24/2022 the patient is here for a pulmonary follow-up visit. Overall he is doing well. He has had episodes of increased wheezing. Thinks is related to stress because his mother is very ill. He is currently taking care of her with the help of his family. Continues on the Fasenra injections. The patient also continues on the Trelegy inhaler which he feels that is very helpful. In the meantime the patient had been sent a prescription for Flovent that he was most use with Trelegy and has not use that as of yet. I did recommend he start the Flovent specially with his increased wheezing. 04/26/2024 the patient is here for a pulmonary follow-up visit. He is finally feeling better. He completed a course of steroids in addition to antibiotics. He did have a chest x-ray which I personally reviewed demonstrating evidence of bronchitis. No evidence of any airspace disease. This last CT scan was back in 2020 demonstrating a calcified granuloma that does not need any additional follow-up at this time. He also has a history of prostate cancer and he has been followed closely with his PSA and has been within normal limits. Overall he is in good standing right now although continues to take the Trelegy daily and he is also on the Fasenra every other month. He is still having wheezing on a regular basis. Therefore will go ahead and start him on Daliresp to see if we can improve his significant chronic bronchitis and asthma COPD overlap syndrome. Hopefully with Daliresp we can minimize the use prednisone. The patient was start the lower dose Daliresp 250 mcg and then increase as tolerated. Will follow-up in 6 months. [facility] Medical History (Updated 04/26/24 @ 19:23 by Deondre Zimmerman MD) Asthma-COPD overlap syndrome Bronchitis Pulmonary nodules Prostate cancer Nasal polyps Asthma Social History (Updated 03/19/23 @ 11:25 by Maribell East LPN) Patient Tobacco Use Status: Never used Tobacco Review of Systems Const Denies night sweats ENT Denies change in voice, Denies lip swelling, Denies mouth pain, Reports nasal congestion, Reports nasal discharge and Denies tongue swelling Card Denies chest pain and Reports dyspnea on exertion Resp Reports cough, Reports dyspnea on exertion and Reports wheezing GI Denies abdominal pain Musc Denies no additional complaints Neuro Denies Neuro-related abnormal movements Psych Denies no additional complaints Adriel/Lymph Denies easy bleeding and Denies lymphadenopathy Aller/Immun Denies lip swelling, Denies tongue swelling and Reports wheezing Physical Exam Vital Signs: Last Vital Signs Pulse 66 04/26/24 13:39 BP 102/74 04/26/24 13:39 Pulse Ox 94 04/26/24 13:39 Oxygen Delivery Method Room Air 04/26/24 13:39 BMI result Body Mass Index 33.5 Const General: alert Neck Neck: Yes normal visual inspection, Yes full ROM and Yes no lymphadenopathy Chest Chest palpation & inspection: normal inspection of the chest Resp Effort & Inspection: normal respiratory effort Auscultation: rhonchi, wheezes and diminished lung sounds Cardio Rate: regular rate Rhythm: regular rhythm Heart sounds: S1 normal heart sound present and S2 normal heart sound present GI Palpation (GI): Soft to palpation and nontender Auscultation: normal bowel sounds General: Yes no CVA tenderness Back/Spine/Pelvis Back: no CVA tenderness Skin General skin exam: rashes and/or lesions noted Assessment & Plan Assessment & Plan (1) Pulmonary nodules: Comment: Last CT scan from [facility] May 2020 with no significant nodules. The patient did have some granulomas identified. Code(s): R91.8 - Other nonspecific abnormal finding of lung field Category: Medical (2) Nasal polyps: Code(s): J33.9 - Nasal polyp, unspecified Category: Medical (3) Asthma: Code(s): J45.909 - Unspecified asthma, uncomplicated Category: Medical Qualifiers: Asthma complication type: uncomplicated Asthma persistence: persistent Asthma severity: severe Qualified Code(s): J45.50 - Severe persistent asthma, uncomplicated (4) CASEY (obstructive sleep apnea): Code(s): G47.33 - Obstructive sleep apnea (adult) (pediatric) Category: Medical Plan: mild, positional therapy for now (5) Asthma-COPD overlap syndrome: Code(s): J44.89 - Other specified chronic obstructive pulmonary disease Category: Medical Plan continue Trelegy 200 Continue Fasenra every 2 months. CAREY as needed Start Daliresp 250mch->500mcg Positional sleep therapy Follow up 6 months Medications: New roflumilast (Daliresp) 250 mcg PO DAILY 30 tabs 11RF 30 days J44.9 - Chronic obstructive pulmonary disease, unspecified Coding Level of Care Code Est Pt Level 4 (88677) Diagnoses Pulmonary nodules R91.8 Nasal polyps J33.9 Severe persistent asthma without complication J45.50 Asthma complication type: uncomplicated Asthma persistence: persistent Asthma severity: severe CASEY (obstructive sleep apnea) G47.33 Asthma-COPD overlap syndrome J44.89 Time Spent (min) 16
== END 2024-04-26 13:57 | disposition home or self-care (01) ==
PROVIDERS: PCP Internal Medicine; Visit Provider Hospitalist
DX: R91.8 Other nonspecific abnormal finding of lung field (principal); J33.9 Nasal polyp, unspecified; J45.50 Severe persistent asthma, uncomplicated; G47.33 Obstructive sleep apnea (adult) (pediatric); J44.89 Other specified chronic obstructive pulmonary disease
CPT/HCPCS: 99214

== ENCOUNTER 2024-10-05 14:01 | Outpatient (REF) | payer OTHER, SELFPAY ==
[2024-10-05 14:46] LABS: MANUAL DIFF FLAG NO
[2024-10-05 15:49] LABS: Basophils Absolute Auto 0.1 X10*3/uL (0.0-0.2); Basophils Percent Auto 1.1 % (0-2); Eosinophils Absolute Auto 0.6 X10*3/uL (0.0-0.4); Eosinophils Percent Auto 5.6 % (0-4); Hematocrit 44.6 % (42.0-52.0); Hemoglobin 15.1 g/dl (14.0-18.0); Imm Gran Abs Auto 0.03 X10*3/uL (0.00-0.03); Imm Gran Pct Auto 0.3 % (0.0-0.4); Lymphocytes Absolute Auto 3.9 X10*3/uL (1.2-4.9); Lymphocytes Percent Auto 38.6 % (20-40); Mean Corpuscular HGB Conc 33.9 g/dl (31.0-36.0); Mean Corpuscular Hemoglobin 30.9 pg (27.0-33.0); Mean Corpuscular Volume 91.4 fL (80.0-98.0); Monocytes Percent Auto 9.5 % (2-11); Neutrophils Absolute Auto 4.5 x10*3/uL (2.0-8.3); Neutrophils Percent Auto 44.9 % (45-73); Platelet Count 226 X10*3/uL (160-400); Red Blood Count 4.88 X10*6/uL (4.60-5.80); Red Cell Distribution Width 14.6 % (11.0-16.0)
[2024-10-05 16:32] LABS: Erythrocyte Sedimentation Rate 3 MM/HR (0-15)
[2024-10-06 05:54] LABS: Immunoglobulin E 11 kU/L (<OR=114)
[2024-10-12 14:54] LABS: Asperg fumigatus Precip Abs NEGATIVE (NEGATIVE); Micropoly faeni Abs NEGATIVE (NEGATIVE); Pigeon serum Abs NEGATIVE (NEGATIVE); Saccharo pora viridis Abs NEGATIVE (NEGATIVE); Thermo candidus Abs NEGATIVE (NEGATIVE); Thermoa vulgaris #1 NEGATIVE (NEGATIVE)
== END 2024-10-05 14:02 | disposition home or self-care (01) ==
LOC: HO.LAB 14:01
PROVIDERS: PCP Internal Medicine; Visit Provider Hospitalist
DX: J44.9 Chronic obstructive pulmonary disease, unspecified (principal); R91.8 Other nonspecific abnormal finding of lung field; J33.9 Nasal polyp, unspecified; J45.50 Severe persistent asthma, uncomplicated; G47.33 Obstructive sleep apnea (adult) (pediatric); J44.89 Other specified chronic obstructive pulmonary disease
CPT/HCPCS: 36415; 82785; 85025; 85652; 86331; 86606; 86609; 99212

== ENCOUNTER 2024-10-05 14:01 | Outpatient (AMB) | payer OTHER, SELFPAY ==
--- NOTE | 2024-10-05 14:04 | MHC.OFFVIS ---
Vital Signs 10/05/24 14:05 Height 5 ft 7 in Weight 202 lb 13.204 oz BMI 31.8 BP 100/50 L Blood Pressure Location Lt brachial Position Sitting Pulse 72 Pulse Source Pulse Oximeter Pulse Oximetry (%) 95 Intake Visit Reasons: Asthma Manager Brand Required: No Accompanied by: Self / Same As Patient Allergies aspirin Allergy (Severe, Verified 10/05/24 14:07) Asthma NSAIDS (Non-Steroidal Anti-Inflamma Allergy (Severe, Verified 10/05/24 14:07) Asthma HPI Comments Details: The patient is a 64 y/o man with severe persistent asthma, chronic rhinitis and nasal polyposis. Overall he is still having hard time with wheezing. He did have some sick contacts in the home. Started developing worsening shortness of breath and cough. Has been using his inhaler more regularly. Has not required prednisone. He did follow up with Allergy and immunology. The recommendation was for him to stop the Nucala and start dupixent. Otherwise he has not had any recent imaging studies or blood work to review. 10/22/2019 the patient is here for pulmonary follow-up visit. He is feeling better. However, several weeks ago he has significant worsening respiratory symptoms. He also has significant muscle achiness and headaches and sore throat. He also had some subjective fevers. Which is after given self the injection with Dupixent. She was unsure frozen reaction to the medication. His symptoms have improved. He continue the Dupixent now for about a month. If he continues to have symptoms or worsening side effects he will consider stopping the medication. He was swab for COVID-19 infection was negative. At this point will retest his antibiotics to make sure. He could not take the Bevespi because he was not cover. Therefore he is not taking a long-acting beta agonist or a long-acting muscarinic antagonist. Will have to optimize respiratory therapy specially since he continues to have wheezing. 04/14/2020 The patient is here for a pulmonary follow up visit. Having worsening asthma symptoms. Has been off Prednisone, The patient has been responding partially to the Fasenra. Tried and failed Dupixent/Nucala/Xolair. Has been using the Symbicort. Has required increased nebulized therapy on a daily basis. Will further optimize his respiratory therapy. 09/01/2020 the patient is here for pulmonary follow-up visit. Overall the patient has been doing better. He denies any worsening respiratory symptoms. He has been able to exercise regularly. He continues on the Fosenra injections. In addition to that he has been using Symbicort. He was started on Daliresp during the last visit as well. He appears to be responding well to the current respiratory regimen will continue. In the meantime again he appears to be sleeping well. We did talk about his sleep study demonstrating mild sleep apnea. The patient will continue positional therapy in holding off CPAP at this time. In regards of his CT scan of the chest that he had recently it demonstrated a calcified nodule consistent with granuloma but otherwise is without any other significant findings. 02/23/2021 the patient is here for a pulmonary follow-up visit. For the last month has been having increasing wheezing and chest tightness. Moderate severity. He did going sees seed trucker who recommended prednisone. He is reluctant to use prednisone at this time. He continues uses Symbicort and also has been using the Daliresp. He continues on the Fasenra injection which appears to be very affecting beneficial for him. He still has significant allergies in his household that he cannot get rid of at this time. We did talk about other biologic therapies to consider in the future including TSLP inhibitors. In the meantime I will be switching the patient over to Trelegy from Symbicort to see if this is more effective for him. The patient also should consider prednisone but since he is reluctant I will provide him with Solu-Medrol IM x 1 to help him improve well the trilogy inhaler is taking affect. 05/04/2021 the patient is here for pulmonary follow-up visit. Overall he is doing better today. Yesterday he was having increasing chest tightness and wheezing. He was not sure if she was going to get any better. He did use a nebulizer with very good effect. his symptoms improved. The patient overall has been responding well to the Fasenra injections. He continues to get that every 2 to months. We will consider changing to a different biologic regimen if a better 1 becomes available. At this time Fasenra has been helpful but has not been completely improving his symptoms. I had sent a prescription for Daliresp during the last visit. The patient does have chronic bronchitis in frequent exacerbations requiring prednisone. Therefore, Daliresp will be a good option for him in order to decrease the need for prednisone. 11/23/2021 the patient is here for a pulmonary follow-up visit. He still continues to have this is good days and bad days. He does continue to use all his respiratory therapy with good adherence. Although the response to therapy she is not completely. He has been using the Fasenra and has been helping him. However, he continues to be symptomatic. We spoke the last time about considering a change to an T TELEPHONE SERVICE REPRESENTATIVE inhibitor. His seed trucker also recommended consider something different because he continues to be very symptomatic. On examination he has significant expiratory wheezing. He does continue to exercise regularly however. At this point the patient is not on prednisone. From a cancer standpoint he has followed up with his urologist and everything stable as well. Will go ahead and start him on additional inhaled cortical steroids that he can use in conjunction with his Trelegy in order to optimize his respiratory capacity. If he continues to be symptomatic the next time he returns in 6 months we will at that point consider switching him to a different biologic medication. 05/24/2022 the patient is here for a pulmonary follow-up visit. Overall he is doing well. He has had episodes of increased wheezing. Thinks is related to stress because his mother is very ill. He is currently taking care of her with the help of his family. Continues on the Fasenra injections. The patient also continues on the Trelegy inhaler which he feels that is very helpful. In the meantime the patient had been sent a prescription for Flovent that he was most use with Trelegy and has not use that as of yet. I did recommend he start the Flovent specially with his increased wheezing. 04/26/2024 the patient is here for a pulmonary follow-up visit. He is finally feeling better. He completed a course of steroids in addition to antibiotics. He did have a chest x-ray which I personally reviewed demonstrating evidence of bronchitis. No evidence of any airspace disease. This last CT scan was back in 2020 demonstrating a calcified granuloma that does not need any additional follow-up at this time. He also has a history of prostate cancer and he has been followed closely with his PSA and has been within normal limits. Overall he is in good standing right now although continues to take the Trelegy daily and he is also on the Fasenra every other month. He is still having wheezing on a regular basis. Therefore will go ahead and start him on Daliresp to see if we can improve his significant chronic bronchitis and asthma COPD overlap syndrome. Hopefully with Daliresp we can minimize the use prednisone. The patient was start the lower dose Daliresp 250 mcg and then increase as tolerated. Will follow-up in 6 months. 10/05/2024 the patient is here for a pulmonary follow-up visit. He has had worsening respiratory symptoms for the last few weeks. He does complaint of chest tightness and wheezing in addition to productive cough. He continues on the Trelegy with good effect. Although is only partial. 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 However, his insurance changed and then was no longer being covered so therefore he stopped it. He has been off for many months now. His eosinophil level significantly elevated the last time those checked therefore, go ahead and recheck it again in addition to that the patient will get an IgE level. He will benefit from going back on the Fasenra based on his previous blood work in his respond to therapy. In the meantime he continue with the Trelegy and the patient should be started on antibiotic course to see the some relief. I will provide him with a nebulizer albuterol medication. In addition to that he will benefit from an Acapella valve for CPT mucus clearance. He already has prednisone home so therefore if symptoms were to worsen he can restart the prednisone since he does have severe persistent asthma. [facility] Medical History (Updated 04/26/24 @ 19:23 by Deondre Zimmerman MD) Asthma-COPD overlap syndrome Bronchitis Pulmonary nodules Prostate cancer Nasal polyps Asthma Social History Patient Tobacco Use Status: Never used Tobacco Review of Systems Const Denies night sweats ENT Denies change in voice, Denies lip swelling, Denies mouth pain, Reports nasal congestion, Reports nasal discharge and Denies tongue swelling Card Denies chest pain and Reports dyspnea on exertion Resp Reports cough, Reports dyspnea on exertion and Reports wheezing GI Denies abdominal pain Musc Denies no additional complaints Neuro Denies Neuro-related abnormal movements Psych Denies no additional complaints Adriel/Lymph Denies easy bleeding and Denies lymphadenopathy Aller/Immun Denies lip swelling, Denies tongue swelling and Reports wheezing Physical Exam Vital Signs: Last Vital Signs Pulse 72 10/05/24 14:05 BP 100/50 L 10/05/24 14:05 Pulse Ox 95 10/05/24 14:05 BMI result Body Mass Index 31.8 Const General: alert Neck Neck: Yes normal visual inspection, Yes full ROM and Yes no lymphadenopathy Chest Chest palpation & inspection: normal inspection of the chest Resp Effort & Inspection: normal respiratory effort Auscultation: rhonchi, wheezes and diminished lung sounds Cardio Rate: regular rate Rhythm: regular rhythm Heart sounds: S1 normal heart sound present and S2 normal heart sound present GI Palpation (GI): Soft to palpation and nontender Auscultation: normal bowel sounds General: Yes no CVA tenderness Back/Spine/Pelvis Back: no CVA tenderness Skin General skin exam: rashes and/or lesions noted Assessment & Plan Assessment & Plan (1) Pulmonary nodules: Comment: Last CT scan from May 2020 with no significant nodules. The patient did have some granulomas identified. Code(s): R91.8 - Other nonspecific abnormal finding of lung field Category: Medical (2) Nasal polyps: Code(s): J33.9 - Nasal polyp, unspecified Category: Medical (3) Asthma: Code(s): J45.909 - Unspecified asthma, uncomplicated Category: Medical Qualifiers: Asthma complication type: uncomplicated Asthma persistence: persistent Asthma severity: severe Qualified Code(s): J45.50 - Severe persistent asthma, uncomplicated (4) CASEY (obstructive sleep apnea): Code(s): G47.33 - Obstructive sleep apnea (adult) (pediatric) Category: Medical Plan: mild, positional therapy for now (5) Asthma-COPD overlap syndrome: Code(s): J44.89 - Other specified chronic obstructive pulmonary disease Category: Medical Plan continue Trelegy 200 would benefit from Fasenra every 2 months. CAREY as needed stopped Daliresp start Azithromycin MWF Positional sleep therapy bloodwork prednisone taper if no better Follow up 6 months Orders: Orders Complete Blood Count Auto Diff Today J33.9 - Nasal polyp, unspecified, J45.50 - Severe persistent asthma, uncomplicated Immunoglobulin E Today J33.9 - Nasal polyp, unspecified, J45.50 - Severe persistent asthma, uncomplicated Erythrocyte Sedimentation Rate Today J33.9 - Nasal polyp, unspecified, J45.50 - Severe persistent asthma, uncomplicated Hypersensitive Pneumonitis Prf Today J33.9 - Nasal polyp, unspecified, J45.50 - Severe persistent asthma, uncomplicated, R91.8 - Other nonspecific abnormal finding of lung field Medications: New azithromycin Take 1 tablet on Friday/Friday/Friday 250 mg PO 3XW 12 tabs 2RF 28 days K21.9 - Gastro-esophageal reflux disease without esophagitis albuterol sulfate 90 mcg/actuation 2 inhalations inhalation Q6H PRN 18 grams 12RF shortness of breath or wheezing 30 days J44.9 - Chronic obstructive pulmonary disease, unspecified Coding Level of Care Code Est Pt Level 4 (62532) Complex EM visit Add On G2211 Diagnoses Pulmonary nodules R91.8 Nasal polyps J33.9 Severe persistent asthma without complication J45.50 Asthma complication type: uncomplicated Asthma persistence: persistent Asthma severity: severe CASEY (obstructive sleep apnea) G47.33 Asthma-COPD overlap syndrome J44.89 Time Spent (min) 17
[2024-10-05 14:05] VITALS: BP 100/50; PULSE 72; O2SAT 95; BMI 31.8
--- OUTSIDE RECORDS SUMMARY | 2024-10-05 16:47 | XMS_ITS | Patient Health Record ---
Author Organization [facility] [address] Address [address] [place] [address] Care Team Providers Care Colon And Rectal Surgeon Name Role Phone GAVIN DUEÑAS Unavailable [phone] JAEL RAMIREZ Unavailable [phone] Allergies No Known Allergies Results Component Value Reference Range Notes DR Chest Routine 2 Views Reviewed date:10/17/2023 10:48:19 AM Interpretation: Performing Lab: Notes/Report: Original Ordering Provider: GAVIN DUEÑAS MD [facility] Comp. Metabolic Panel (14)-3 Reviewed date:05/28/2024 08:55:27 AM Interpretation: Performing Lab:[facility], [address] [place] [address], [place], Phone - [phone], Director - Long Notes/Report: Glucose 92 70-99 mg/dL BUN 17 8-27 mg/dL Creatinine 1.00 0.76-1.27 mg/dL eGFR 86 >59 mL/min/1.73 BUN/Creatinine Ratio 17 10-24 Sodium 140 134-144 mmol/L Potassium 4.4 3.5-5.2 mmol/L Chloride 104 96-106 mmol/L Carbon Dioxide, Total 23 20-29 mmol/L Calcium 10.1 8.6-10.2 mg/dL Protein, Total 6.9 6.0-8.5 g/dL Albumin 4.4 3.9-4.9 g/dL Globulin, Total 2.5 1.5-4.5 g/dL Bilirubin, Total 0.9 0.0-1.2 mg/dL Alkaline Phosphatase 58 44-121 IU/L AST (SGOT) 27 0-40 IU/L ALT (SGPT) 35 0-44 IU/L Lipid Panel-[id number] Reviewed date:05/28/2024 09:19:35 AM Interpretation: Performing Lab:[facility], [address] [place] [address], Phone - [phone], Director - [place] Notes/Report: Cholesterol, Total 181 100-199 mg/dL Triglycerides 102 0-149 mg/dL HDL Cholesterol 44 >39 mg/dL VLDL Cholesterol Jameel 19 5-40 mg/dL LDL Chol Calc ([facility]) 118 0-99 mg/dL CBC With Differential/Platel et-[id number] Reviewed date:05/28/2024 09:17:22 AM Interpretation: Performing Lab:[facility] [place], [address] [place] [address], Phone - [phone], Director - Long Notes/Report: WBC 8.3 3.4-10.8 x10E3/uL RBC 5.24 4.14-5.80 x10E6/uL Hemoglobin 15.8 13.0-17.7 g/dL Hematocrit 46.8 37.5-51.0 % MCV 89 79-97 fL MCH 30.2 26.6-33.0 pg MCHC 33.8 31.5-35.7 g/dL RDW 13.4 11.6-15.4 % Platelets 263 150-450 x10E3/uL Neutrophils 36 Not Estab. % Lymphs 51 Not Estab. % Monocytes 12 Not Estab. % Eos 1 Not Estab. % Basos 0 Not Estab. % Neutrophils (Absolute) 3.0 1.4-7.0 x10E3/uL Lymphs (Absolute) 4.1 0.7-3.1 x10E3/uL Monocytes(Absolute) 1.0 0.1-0.9 x10E3/uL Eos (Absolute) 0.1 0.0-0.4 x10E3/uL Baso (Absolute) 0.0 0.0-0.2 x10E3/uL Immature Granulocytes 0 Not Estab. % Immature Grans (Abs) 0.0 0.0-0.1 x10E3/uL Urinalysis, Complete-[id number] Reviewed date:05/28/2024 08:55:27 AM Interpretation: Performing [facility], [address] [place] [address], [place], Phone - [phone], Director - Long Notes/Report: Specific [place] 1.024 1.005-1.030 pH 5.5 5.0-7.5 Urine-Color Yellow Yellow Appearance Clear Clear WBC Esterase Negative Negative Protein Negative Negative/Trace Glucose Negative Negative Ketones Negative Negative Occult Blood Negative Negative Bilirubin Negative Negative Urobilinogen,Semi-Qn 1.0 0.2-1.0 mg/dL Nitrite, Urine Negative Negative Microscopic Examination Micr oscopic follows if indicated. Microscopic Examination See below: Micr oscopic was indicated and was performed. WBC 0-5 0 - 5 /hpf RBC None seen 0 - 2 /hpf Epithelial Cells (non renal) None seen 0 - 10 /hpf Casts None seen None seen /lpf Bacteria None seen None seen/Few PSA (Reflex To Free) (Serial )-[id number] Reviewed date:10/21/2023 01:54:14 PM Interpretation: Performing Lab:[facility] [place], [address] [place] [address], Phone - [phone], Director - [facility] Notes/Report: Prostate Specific Ag <0.1 0.0-4.0 ng/mL Brayan ECLIA methodology. . According to the [place] [employer], Serum PSA should decrease and [...] PSA is between 4.0 and 10.0 ng/mL. Lyme Disease Serology w/Refl ex-[id number] Reviewed date:10/21/2023 01:54:05 PM Interpretation: Performing Lab:[facility] [place], [address] [place] [address], [place], Phone - [phone], Director - [facility] Notes/Report: Lyme Total Antibody MAHESH Negative Negative Lyme antibodies not detected. Reflex testing is not indicated. No laboratory evidence of infection with B. burgdorferi (Lyme disease). Negative results may occur in patients recently infected (less than or equal to 14 days) with B. burgdorferi. If recent infection is suspected, repeat testing on a new sample collected in 7 to 14 days is recommended. Vitamin D, 10-Mfbohfo-[id number] Reviewed date:10/21/2023 01:54:05 PM Interpretation: Performing Lab:[facility], [address] [facility], Phone - [phone], Director - Long Notes/Report: Vitamin D, 25-Hydroxy 43.7 30.0-100.0 ng/mL Vitamin D deficiency has been defined by the [place] [employer] and an Endocrine Society practice guideline as a level of serum 25-OH vitamin D less than 20 ng/mL (1,2). The Endocrine Society went on to further define vitamin D insufficiency as a level between 21 and 29 ng/mL (2). 1. IOM ([place] of [employer]). 2010. Dietary reference intakes for calcium and D. [place]: The National Academies Press. 2. Shannan MF, eDnnis CORONA, Chava GREEN, et al. Evaluation, treatment, and prevention of vitamin D deficiency: an Endocrine Society clinical practice guideline. JCEM. 2010; 96(7):1911-30. Sedimentation Rate-[place] n-[id number] Reviewed date:10/21/2023 01:54:05 PM Interpretation: Performing Lab:[facility], [address] [facility], Phone - [phone], Director - Long Notes/Report: Sedimentation Rate-[place] 4 0-30 mm/hr Comp. Metabolic Panel (14)-3 [id number] Reviewed date:11/05/2023 10:31:35 AM Interpretation: Performing Lab:[facility], [address] [facility], Phone - [phone], Director - Long Notes/Report: Glucose 92 70-99 [...] 0-40 IU/L ALT (SGPT) 30 0-44 IU/L Lipid Panel-[id number] Reviewed date:11/05/2023 10:53:39 AM Interpretation: Performing Lab:[facility] [place], [address] [facility], Phone - [phone], Director - MDSandra Notes/Report: Cholesterol, Total 193 100-199 mg/dL Triglycerides 115 0-149 mg/dL HDL Cholesterol 43 >39 mg/dL VLDL Cholesterol Jameel 21 5-40 mg/dL LDL Chol Calc (NIH) 129 0-99 mg/dL CBC With Differential/Platel et-[id number] Reviewed date:11/05/2023 10:44:58 AM Interpretation: Performing Lab:[facility] [place], [address] [facility], [place], Phone - [phone], Director - MDSandra Notes/Report: WBC 6.6 3.4-10.8 x10E3/uL RBC 5.09 4.14-5.80 x10E6/uL Hemoglobin 15.6 13.0-17.7 g/dL Hematocrit 46.1 37.5-51.0 % MCV 91 79-97 fL MCH 30.6 26.6-33.0 pg MCHC 33.8 31.5-35.7 g/dL RDW 13.6 11.6-15.4 % Platelets 209 150-450 x10E3/uL Neutrophils 41 Not Estab. % Lymphs 48 Not Estab. % Monocytes 11 Not Estab. % Eos 0 Not Estab. % Basos 0 Not Estab. % Neutrophils (Absolute) 2.7 1.4-7.0 x10E3/uL Lymphs (Absolute) 3.2 0.7-3.1 x10E3/uL Monocytes(Absolute) 0.7 0.1-0.9 x10E3/uL Eos (Absolute) 0.0 0.0-0.4 x10E3/uL Baso (Absolute) 0.0 0.0-0.2 x10E3/uL Immature Granulocytes 0 Not Estab. % Immature Grans (Abs) 0.0 0.0-0.1 x10E3/uL Reason For Referral Reason Fatigue with HFCCA Diagnosis 1 SOB (shortness of br eath) (R06.02) Diagnosis 2 Fatigue, unspecified type (R53.83) Referral Organization [facility] [address] Referring Provider First Name GAVIN Referring Provider Last Name SPENSER Referring Provider Speciality Internal M edicine Referred Provider Specialty Cardiology General Notes [facility], [address] [place] [address], [place] [address], , FAX [phone] Clinical Notes Kaitlin Romero 2023 09:20:32 AM >all referral info sent to [facility], copy mailed to pt for record and FU, Kaitlin Romero 10/27/2023 09:55:44 AM >[facility] no longer accepting [facility], referral resent to [facility], called pt LVM with update, Lorene Bone 12/25/2023 09:14:43 AM > The patient was seen on 11/28/2023 Referral Priority Routine Medications Medication SIG (Take, Route, Frequency, Duration) Notes Start Date End Date Status ProAir HFA 108 (90 Base) MCG/ACT 2 puffs as needed Inhalation every 6 hrs for 30 days Active Ipratropium-Albuterol 0.5-2.5 (3) MG/3ML INHALE 3 ML EVERY 6 HOURS NEEDED FOR 30 DAYS for 30 Active Fish Oil 645 MG as directed Orally Active Probiotic 250 MG as directed Orally Active Multi Complete - as directed Orally Active Claritin 10 MG 1 tablet Orally Once a day Active Fasenra 30 MG/ML 1 null Subcutaneous monthly Active Trelegy Ellipta 100-62.5-25 MCG/INH 1 puff Inhalation Once a day Active Qnasl 80 MCG/ACT 2 sprays in each nos tril Nasally Once a day Active Social History Tobacco Use: Social History Observation Description Date Details (start date - stop date) Never Smoker NA - NA Tobacco Use/Smoking Question Answer Notes Are you a nonsmoker Problems Problem Type SNOMED Code ICD Code Onset Dates Problem Status W/U Status Risk Notes Problem Hyperlipidemia (46972958) Hyperlipidemia, unspecified (E78.5) Active confirmed Problem 58923575 Essential (prima ry) hypertension (I10) Active confirmed Problem Asthma (198776359) Other asthma (J45.998) Active confirmed Problem 4979752213 Left knee pain, unspecified chronicity (M25.562) Active confirmed Problem History of malignant neoplasm of prostate (761030928) H/O prostate cancer (Z85.46) Active confirmed Problem 09414980 Anxiety (F41.9) Active confirmed Problem Hyperlipoproteinemia (9626286) Acquired hyperlipoproteinemia (E78.5) Active confirmed Problem 17180127 Fatigue, unspeci fied type (R53.83) Active confirmed Problem Malignant tumor of prostate (024318909) Prostate cancer (C61) Active confirmed Problem 920763290 Annual physical exam (Z00.00) Active confirmed Problem 715404227 SOB (shortness o f breath) (R06.02) Active confirmed Problem Prediabetes (904408308) Pre-diabetes (R73.03) Active confirmed Problem 87066598 Stress reaction (F43.0) Active confirmed Vital Signs Heart Rate 78 /min 06/10/2024 Oximetry 98 % 06/10/2024 Blood pressure diastolic 80 mm Hg 06/10/2024 Height 67 in 06/10/2024 Blood pressure systolic 132 mm Hg 06/10/2024 Weight 211.5 lbs 06/10/2024 BMI 33.12 kg/m2 06/10/2024 Encounters Encounter Location Date Provider Diagnosis [facility] [address] [place] [address] 10/06/2023 TALAL DUEÑAS Prostate cancer C61 and Fatigue, unspecified type R53.83 [facility] [address] [address] 10/14/2023 TALAL DUEÑAS SOB (shortness of br eath) R06.02 ; Upper back pain M54.9 and Prostate cancer C61 [facility] [address] [place] [address] 11/10/2023 TALAL DUEÑAS Hyperlipidemia, unsp ecified E78.5 ; Essential (primary) hypertension I10 and Other asthma J45.998 [facility] [address] [address] 06/10/2024 TALAL DUEÑAS Pre-diabetes R73.03 ; Annual physical exam Z00.00 ; Acquired hyperlipoproteinemia E78.5 and H/O prostate cancer Z85.[address] [facility] [address] [place] [address] 10/09/2023 GAVIN DUEÑAS [facility] [address] [place] [address] 10/21/2023 TALBIGG DUEÑAS [facility] [address] [facility] [address] [place] [address] 03/05/2024 TALBIGG DUEÑAS [facility] [address] [place] [address] 06/10/2024 GAVIN DUEÑAS [facility] [address] [place] [address] 10/05/2024 JAEL RAMIREZ Assessments Encounter Date Diagnosis (ICD Code) Assessment Notes Treatment Notes Treatment Clinical Notes Section Notes 10/06/2023 Prostate cancer (ICD -10 - C61) Patient is coming in with fatigue. Differential diagnosis is broad and could be statin induced myopathy although unlikely as it has persisted metastatic prostate cancer coronary artery disease and cardiomyopathy obstructive sleep apnea hypothyroidism Lyme disease vitamin D deficiency etc. we have initiated blood work referred to cardiology set up sleep study and will follow-up discussed in detail with the patient and 11/10/2023 Hyperlipidemia, unspecified (ICD-10 - E78.5) Patient with no new cardiovascular workup. Asthma hypertension hyperlipidemia currently stable and will continue current medications along with diet and exercise. He is now coping better with the passing of his mother and will deal with that through prayer exercise and meditation 10/14/2023 SOB (shortness of breath) (ICD-10 - R06.02) 1. SOB : Patient has complaints of intermittent L shoudler pain and SOB for alissa past 2 months. Start Celebrex 200 mg bid x10 days for the pain. 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 Cardiac involvement was considered Patient had a negative EKGWe will continue to consider it in the differential diagnosis and will monitor the patient's symptoms.Patient should also complete the blood work that has been ordered for him Follow up in office in 2 months.. 06/10/2024 Annual physical exam (ICD-10 - Z00.00) Patient [...] log exercise and discussed fitness Apps like Yamsafer which can help keep log off calories [...] and hemoglobin A1c testing might be appropriate. 8. Patient has hemoglobin A1c of 6 and will make changes to his diet and exercise. His LDL was 119 and we would like it to be below 100 he will come back with lipids hemoglobin A1c and PSA on next visit. 06/10/2024 Pre-diabetes (ICD-10 - R73.03) Patient seen and [...] log exercise and discussed fitness Apps like Yamsafer which can help keep log off calories [...] and hemoglobin A1c testing might be appropriate. 8. Patient has hemoglobin A1c of 6 and will make changes to his diet and exercise. His LDL was 119 and we would like it to be below 100 he will come back with lipids hemoglobin A1c and PSA on next visit. 10/14/2023 Upper back pain (ICD -10 - M54.9) 1. SOB : Patient has complaints of intermittent L shoudler pain and SOB for alissa past 2 months. Start Celebrex 200 mg bid x10 days for the pain. 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 Cardiac involvement was considered Patient had a negative EKGWe will continue to consider it in the differential diagnosis and will monitor the patient's symptoms.Patient should also complete the blood work that has been ordered for him Follow up in office in 2 months.. 11/10/2023 Essential (primary) hypertension (ICD-10 - I10) Patient with no new cardiovascular workup. Asthma hypertension hyperlipidemia currently stable and will continue current medications along with diet and exercise. He is now coping better with the passing of his mother and will deal with that through prayer exercise and meditation 10/06/2023 Fatigue, unspecified type (ICD-10 - R53.83) Patient i s coming in with fatigue. Differential diagnosis is broad and could be statin induced myopathy although unlikely as it has persisted metastatic prostate cancer coronary artery disease and cardiomyopathy obstructive sleep apnea hypothyroidism Lyme disease vitamin D deficiency etc. we have initiated blood work referred to cardiology set up sleep study and will follow-up discussed in detail with the patient and 06/10/2024 Acquired hyperlipoproteinemia (ICD-10 - E78.5) Patient seen and examined. [...] log exercise and discussed fitness Apps like Yamsafer which can help keep log off calories [...] and hemoglobin A1c testing might be appropriate. 8. Patient has hemoglobin A1c of 6 and will make changes to his diet and exercise. His LDL was 119 and we would like it to be below 100 he will come back with lipids hemoglobin A1c and PSA on next visit. 10/14/2023 Prostate cancer (ICD -10 - C61) 1. SOB : Patient has complaints of intermittent L shoudler pain and SOB for alissa past 2 months. Start Celebrex 200 mg bid x10 days for the pain. 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 Cardiac involvement was considered Patient had a [...] with that through prayer exercise and meditation 06/10/2024 H/O prostate cancer (ICD-10 - Z85.46) Patient seen and examined. Comprehensive discussion was [...] log exercise and discussed fitness Apps like Yamsafer which can help keep log off calories [...] and hemoglobin A1c testing might be appropriate. 8. Patient has hemoglobin A1c of 6 and will make changes to his diet and exercise. His LDL was 119 and we would like it to be below 100 he will come back with lipids hemoglobin A1c and PSA on next visit. Plan Of Treatment Pending Test Test Name Order Date X [...] LIPID PANEL, STANDARD 05/12/2023 LIPID PANEL, STANDARD 06/10/2024 LIPID PANEL, STANDARD 11/10/2023 COMPREHENSIVE METABOLIC PANEL 11/10/2023 COMPREHENSIVE METABOLIC PANEL 03/15/2022 COMPREHENSIVE METABOLIC PANEL 05/12/2023 COMPREHENSIVE METABOLIC PANEL 09/21/2021 CBC (H/H, RBC, INDICES, WBC, PLT) 2020 CBC (INCLUDES DIFF/PLT) 09/21/2021 CBC (INCLUDES DIFF/PLT) 05/12/2023 CBC (INCLUDES DIFF/PLT) 03/15/2022 CBC (INCLUDES DIFF/PLT) 11/10/2023 URINALYSIS, COMPLETE 11/10/2023 URINALYSIS, COMPLETE 09/21/2021 URINALYSIS, COMPLETE 03/15/2022 SED RATE BY MODIFIED WESTERGREN 10/06/19 24 HEMOGLOBIN A1c 03/15/2022 HEMOGLOBIN A1c 09/21/2021 HEMOGLOBIN A1c 09/11/2022 PSA (FREE AND TOTAL) 10/06/2023 PSA (FREE AND TOTAL) 03/15/2022 PSA (FREE AND TOTAL) 06/10/2024 VITAMIN D,25-OH,TOTAL,IA 10/06/2023 LYME AB SCREEN 10/06/2023 Next Appt Details Provider Name:JAEL ASHLEY, 11/29/2024 10:00:00 AM, [address], [place], [address], Insurance Providers Payer Name Payer Address Payer Phone Subscriber Number Group Number Insured Name Patient Relationship to Insured Coverage Start Date Coverage End Date [facility] Plan [id number] [place] [address] [phone] [id number] LION BEARD Self - patient is the insured Medical (General) History Medical History History ICD Code prostate cancer asthma Surgical History Surgery Date(Month/Year) prostate cancer surgery sinus surgery 2003 spleen removed at age 17
== END 2024-10-05 14:31 | disposition home or self-care (01) ==
LOC: HO.HPS 14:02
PROVIDERS: PCP Internal Medicine; Visit Provider Hospitalist
DX: R91.8 Other nonspecific abnormal finding of lung field (principal); J33.9 Nasal polyp, unspecified; J45.50 Severe persistent asthma, uncomplicated; G47.33 Obstructive sleep apnea (adult) (pediatric); J44.89 Other specified chronic obstructive pulmonary disease
CPT/HCPCS: 99214; G2211

== ENCOUNTER 2025-01-07 14:22 | Outpatient (AMB) | payer OTHER, SELFPAY ==
[2025-01-07 14:28] VITALS: BP 127/77; PULSE 67; O2SAT 94; BMI 32.7
--- NOTE | 2025-01-07 14:28 | A.OFFVIS_ITS ---
Vital Signs 01/07/25 14:28 Height 5 ft 7 in Weight 209 lb BMI 32.7 BP 127/77 Blood Pressure Location Rt brachial Position Sitting Pulse 67 Pulse Source Pulse Oximeter Pulse Oximetry (%) 94 Oxygen Delivery Method Room Air Intake Visit Reasons: Asthma Allergies aspirin Allergy (Severe, Verified 10/05/24 14:07) Asthma NSAIDS (Non-Steroidal Anti-Inflamma Allergy (Severe, Verified 10/05/24 14:07) Asthma HPI Comments Details: The patient is a 64 y/o man with severe persistent asthma, chronic rhinitis and nasal polyposis. Overall he is still having hard time with wheezing. He did have some sick contacts in the home. Started developing worsening shortness of breath and cough. Has been using his inhaler more regularly. Has not required prednisone. He did follow up with Allergy and immunology. The recommendation was for him to stop the Nucala and start dupixent. Otherwise he has not had any recent imaging studies or blood work to review. 10/22/2019 the patient is here for pulmonary follow-up visit. He is feeling better. However, several weeks ago he has significant worsening respiratory symptoms. He also has significant muscle achiness and headaches and sore throat. He also had some subjective fevers. Which is after given self the injection with Dupixent. She was unsure frozen reaction to the medication. His symptoms have improved. He continue the Dupixent now for about a month. If he continues to have symptoms or worsening side effects he will consider stopping the medication. He was swab for COVID-19 infection was negative. At this point will retest his antibiotics to make sure. He could not take the Bevespi because he was not cover. Therefore he is not taking a long-acting beta agonist or a l majo-acting muscarinic antagonist. Will have to optimize respiratory therapy specially since he continues to have wheezing. 04/14/2020 The patient is here for a pulmonary follow up visit. Having worsening asthma symptoms. Has been off Prednisone, The patient has been responding partially to the Fasenra. Tried and failed Dupixent/Nucala/Xolair. Has been using the Symbicort. Has required increased nebulized therapy on a daily basis. Will further optimize his respiratory therapy. 09/01/2020 the patient is here for pulmonary follow-up visit. Overall the patient has been doing better. He denies any worsening respiratory symptoms. He has been able to exercise regularly. He continues on the Fosenra injections. In addition to that he has been using Symbicort. He was started on Daliresp during the last visit as well. He appears to be responding well to the current respiratory regimen will continue. In the meantime again he appears to be sleeping well. We did talk about his sleep study demonstrating mild sleep apnea. The patient will continue positional therapy in holding off CPAP at this time. In regards of his CT scan of the chest that he had recently it demonstr ated a calcified nodule consistent with granuloma but otherwise is without any other significant findings. 02/23/2021 the patient is here for a pulmonary follow-up visit. For the last month has been having increasing wheezing and chest tightness. Moderate severity. He did going sees senior analytical chemist who recommended prednisone. He is reluctant to use prednisone at this time. He continues uses Symbicort and also has been using the Daliresp. He continues on the Fasenra injection which appears to be very affecting beneficial for him. He still has significant allergies in his household that he cannot get rid of at this time. We did talk about other biologic therapies to consider in the future including TSLP inhibitors. In the meantime I will be switching the patient over to Trelegy from Symbicort to see if this is more effective for him. The patient also should consider prednisone but since he is reluctant I will provide him with Solu-Medrol IM x 1 to help him improve well the trilogy inhaler is taking affect. 05/04/2021 the patient is here for pulmonary follow-up visit. Overall he is doing better today. Yesterday he was having increasing chest tightness and wheezing. He was not sure if she was going to get any better. He did use a nebulizer with very good effect. his symptoms improved. The patient overall has been responding well to the Fasenra injections. He continues to get that every 2 to months. We will consider changing to a different biologic regimen if a better 1 becomes available. At this time Fasenra has been helpful but has not been completely improving his symptoms. I had sent a prescription for Daliresp during the last visit. The patient does have chronic bronchitis in frequent exacerbations requiring prednisone. Therefore, Daliresp will be a good option for him in order to decrease the need for prednisone. 11/23/2021 the patient is here for a pulmonary follow-up visit. He still continues to have this is good days and bad days. He does continue to use all his respiratory therapy with good adherence. Although the response to therapy she is not completely. He has been using the Fasenra and has been helping him. However, he continues to be symptomatic. We spoke the last time about considering a change to an T [employer]NER inhibitor. His senior analytical chemist also recommended consider something different because he continues to be very symptomatic. On examination he has significant expiratory wheezing. He does continue to exercise regularly however. At this point the patient is not on prednisone. From a cancer standpoint he has followed up with his urologist and everything stable as well. Will go ahead and start him on additional inhaled cortical steroids that he can use in conjunction with his Trelegy in order to optimize his respiratory capacity. If he continues to be symptomatic the next time he returns in 6 months we will at that point consider switching him to a different biologic medication. 05/24/2022 the patient is here for a pulmonary follow-up visit. Overall he is doing well. He has had episodes of increased wheezing. Thinks is related to stress because his mother is very ill. He is currently taking care of her with the help of his family. Continues on the Fasenra injections. The patient also continues on the Trelegy inhaler which he feels that is very helpful. In the meantime the patient had been sent a prescription for Flovent that he was most use with Trelegy and has not use that as of yet. I did recommend he start the Flovent specially with his increased wheezing. 04/26/2024 the patient is here for a pulmonary follow-up visit. He is finally feeling better. He completed a course of steroids in addition to antibiotics. He did have a chest x-ray which I personally reviewed demonstrating evidence of bronchitis. No evidence of any airspace disease. This last CT scan was back in 2020 demonstrating a calcified granuloma that does not need any additional follow-up at this time. He also has a history of prostate cancer and he has been followed closely with his PSA and has been within normal limits. Overall he is in good standing right now although continues to take the Trelegy daily and he is also on the Fasenra every other month. He is still having wheezing on a regular basis. Therefore will go ahead and start him on Daliresp to see if we can improve his significant chronic bronchitis and asthma COPD overlap syndrome. Hopefully with Daliresp we can minimize the use prednisone. The patient was start the lower dose Daliresp 250 mcg and then increase as tolerated. Will follow-up in 6 months. 10/05/2024 the patient is here for a pulmonary follow-up visit. He has had worsening respiratory symptoms for the last few weeks. He does complaint of chest tightness and wheezing in addition to productive cough. He continues on the Trelegy with good effect. Although is only partial. 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 However, his insurance changed and then was no longer being covered so therefore he stopped it. He has been off for many months now. His eosinophil level significantly elevated the last time those checked therefore, go ahead and recheck it again in addition to that the patient will get an IgE level. He will benefit from going back on the Fasenra based on his previous blood work in his respond to therapy. In the meantime he continue with the Trelegy and the patient should be started on antibiotic course to see the some relief. I will provide him with a nebulizer albuterol medication. In addition to that he will benefit from an Acapella valve for CPT mucus clearance. He already has prednisone home so therefore if symptoms were to worsen he can restart the prednisone since he does have severe persistent asthma. 01/07/2025 the patient is here for pulmonary follow-up visit. Overall the patient has been struggling with his asthma. Since been off the Fasenra he has been having hard time. With multiple courses of prednisone. He continues on the Trelegy inhaler with partial improvement and also has his nebulizer. The patient did have blood work fairly recently demonstrating significant eosinophilia. The Fasenra was very effective for him. Therefore, will go ahead and reorder the medication for him to be started as soon as possible. In the meantime will give him additional prednisone. The patient can also start budesonide nebs to try to mitigate some of the need for systemic steroids. No recent imaging studies to review at this time. Will hold off on any pulmonary function studies until his respiratory status is better. [facility] Medical History (Updated 04/26/24 @ 19:23 by Deondre Zimmerman MD) Asthma-COPD overlap syndrome Bronchitis Pulmonary nodules Prostate cancer Nasal polyps Asthma Social History Patient Tobacco Use Status: Never used Tobacco Review of Systems Const Denies night sweats ENT Denies change in voice, Denies lip swelling, Denies mouth pain, Reports nasal congestion, Reports nasal discharge and Denies tongue swelling Card Denies chest pain and Reports dyspnea on exertion Resp Reports chest congestion, Reports cough, Reports dyspnea on exertion and Reports wheezing GI Denies abdominal pain Musc Denies no additional complaints Neuro Denies Neuro-related abnormal movements Psych Denies no additional complaints Adriel/Lymph Denies easy bleeding and Denies lymphadenopathy Aller/Immun Denies lip swelling, Denies tongue swelling and Reports wheezing Physical Exam Vital Signs: Last Vital Signs Pulse 67 01/07/25 14:28 BP 127/77 01/07/25 14:28 Pulse Ox 94 01/07/25 14:28 Oxygen Delivery Method Room Air 01/07/25 14:28 BMI result Body Mass Index 32.7 Const General: alert Neck Neck: Yes normal visual inspection, Yes full ROM and Yes no lymphadenopathy Chest Chest palpation & inspection: normal inspection of the chest Resp Effort & Inspection: normal respiratory effort Auscultation: rhonchi, wheezes and diminished lung sounds Cardio Rate: regular rate Rhythm: regular rhythm Heart sounds: S1 normal heart sound present and S2 normal heart sound present GI Palpation (GI): Soft to palpation and nontender Auscultation: normal bowel sounds General: Yes no CVA tenderness Back/Spine/Pelvis Back: no CVA tenderness Skin General skin exam: rashes and/or lesions noted Assessment & Plan Assessment & Plan (1) Pulmonary nodules: Comment: Last CT scan from May 2020 with no significant nodules. The patient did have some granulomas identified. Code(s): R91.8 - Other nonspecific abnormal finding of lung field Category: Medical (2) Nasal polyps: Code(s): J33.9 - Nasal polyp, unspecified Category: Medical (3) Asthma: Code(s): J45.909 - Unspecified asthma, uncomplicated Category: Medical Qualifiers: Asthma complication type: uncomplicated Asthma persistence: persistent Asthma severity: severe Qualified Code(s): J45.50 - Severe persistent asthma, uncomplicated (4) CASEY (obstructive sleep apnea): Code(s): G47.33 - Obstructive sleep apnea (adult) (pediatric) Category: Medical Plan: mild, positional therapy for now (5) Asthma-COPD overlap syndrome: Code(s): J44.89 - Other specified chronic obstructive pulmonary disease Category: Medical Plan continue Trelegy 200 Add Budesonide Prednisone continue Singulair Needs to start Fasenra every 2 months. CAREY as needed Positional sleep therapy Follow up 3-6 months Medications: New budesonide 0.5 mg (2 mL) inhalation BID 120 mL 11RF 30 days J44.9 - Chronic obstructive pulmonary disease, unspecified prednisone 20 mg (2 x 10 mg) PO DAILY 60 tabs 1RF 30 days Coding Level of Care Code Est Pt Level 4 (40038) Complex EM visit Add On G2211 Diagnoses Pulmonary nodules R91.8 Nasal polyps J33.9 Severe persistent asthma without complication J45.50 Asthma complication type: uncomplicated Asthma persistence: persistent Asthma severity: severe CASEY (obstructive sleep apnea) G47.33 Asthma-COPD overlap syndrome J44.89 Time Spent (min) 17
--- OUTSIDE RECORDS SUMMARY | 2025-01-07 17:16 | XMS_ITS | Patient Health Record ---
Author Organization [facility] [address] Address [address] [place] [address] Care Team Providers Care Airplane Navigator Name Role Phone GAVIN DUEÑAS Unavailable [phone] JAEL RAMIREZ Unavailable [phone] Allergies No Known Allergies Results Component Value Reference Range Notes PSA TOTAL, FREE AND COMPLEXE D Reviewed date:11/18/2024 04:19:41 PM Interpretation: Performing Lab: Notes/Report: This test was performed using the Centaur Chemiluminescent method. PSA values obtained with other methods cannot be used interchangeably. Free PSA is a calculated value. The diagnostic usefulness of % free PSA has not been established in patients with Total PSA below 2.6 or above 10 ng/mL. PSA <0.06 0.00-4.00 ng/mL PSA, Complexed <0.07 0.00-3.00 ng/mL PSA, Free See Report PSA, Free Pct See Report LIPID PANEL WITH REFLEX TO D IRECT LDL Reviewed date:11/19/2024 08:32:54 AM Interpretation: Performing Lab: Notes/Report: Cholesterol 176 0-200 mg/dL Triglycerides 103 0-150 mg/dL HDL 46 >=40 mg/dL LDL Calculated 109 0-100 mg/dL VLDL Cholesterol Jameel 20.6 Non HDL Chol. (LDL+VLDL) 130 <145 mg/dL Chol/HDL Ratio 3.8 0.0-4.4 Comp. Metabolic Panel (14)-3 Reviewed date:05/28/2024 08:55:27 AM Interpretation: Performing Lab:[facility], [address] [facility], [place], Phone - [phone], Director - Long Notes/Report: Glucose 92 70-99 [...] IU/L ALT (SGPT) 35 0-44 IU/L Lipid Panel-[id number] Reviewed date:05/28/2024 09:19:35 AM Interpretation: Performing Lab:Indira Maurer, [address] [facility], Phone - [phone], Director - MDJodry Notes/Report: Cholesterol, Total 181 100-199 mg/dL Triglycerides 102 0-149 mg/dL HDL Cholesterol 44 >39 mg/dL VLDL Cholesterol Jameel 19 5-40 mg/dL LDL Chol Calc ([facility]) 118 0-99 mg/dL CBC With Differential/Platel et-[id number] Reviewed date:05/28/2024 09:17:22 AM Interpretation: Performing Lab:[facility]acon[facility] Maurer, [address] [facility], Phone - [phone], Director - MDJoy Notes/Report: WBC 8.3 3.4-10.8 x10E3/uL RBC 5.24 [...] Immature Grans (Abs) 0.0 0.0-0.1 x10E3/uL Urinalysis, Complete-[id number] Reviewed date:05/28/2024 08:55:27 AM Interpretation: Performing Lab:[facility], [address] [place] [address], [place], Phone - [phone], Director - Long Notes/Report: Specific Drury 1.024 1.005-1.030 pH 5.5 5.0-7.5 Urine-Color Yellow [...] seen /lpf Bacteria None seen None seen/Few Reason For Referral No Information Medications Medication SIG (Take, Route, Frequency, Duration) Notes Start Date End Date Status Ipratropium-Albuterol 0.5-2.5 (3) MG/3ML INHALE 3 ML EVERY 6 HOURS NEEDED FOR 30 DAYS; Duration: 30 Active ProAir HFA 108 (90 Base) MCG/ACT 2 puffs as needed Inhalation every 6 hrs; Duration: 30 days Active Probiotic 250 MG as directed Orally Active Fish Oil 645 MG as directed Orally Active predniSONE 10 MG 4 tab x 3 days 3 tab s x 3 days2 tabs x 3 days1 tab x 3 days Orally Once a day; Duration: 12 days 11/29/2024 Active Claritin 10 MG 1 tablet Orally Once a day Active Multi Complete - as directed Orally Active Trelegy Ellipta 100-62.5-25 MCG/INH 1 puff Inhalation Once a day Active Fasenra 30 MG/ML 1 null Subcutaneous monthly Active Montelukast Sodium 10 MG TAKE 1 TABLET B Y MOUTH EVERY DAY; Duration: 90 Active Qnasl 80 MCG/ACT 2 sprays in each nos tril Nasally Once a day Active Social History Tobacco Use: Social History Observation Description Date Details (start date - stop date) Never Smoker NA - NA Tobacco Use/Smoking Question Answer Notes Are you a nonsmoker Problems Problem Type SNOMED Code ICD Code Onset Dates Problem Status W/U Status Risk Notes Problem Vitamin D deficiency (92003811) Vitamin D deficiency, unspecified (E55.9) Active confirmed Problem Hyperlipidemia (91360601) Hyperlipidemia, unspecified (E78.5) Active confirmed Problem Essential hypertension (29839024) Essential (primary) hypertension (I10) Active confirmed Problem Uncomplicated severe persistent asthma (484564964) Severe persistent asthma, uncomplicated (J45.50) Active confirmed Problem Acute severe exacerbation of severe persistent asthma (837905807) Severe persistent asthma with (acute) exacerbation (J45.51) Active confirmed Problem Asthma (020521836) Other asthma (J45.998) Active confirmed Problem Lipid screening (651770696) Encounter for screening for lipoid disorders (Z13.220) Active confirmed Problem Pain of left knee region (finding) (138373421766628) Left knee pain, unspecified chronicity (M25.562) Active confirmed Problem History of malignant neoplasm of prostate (746185910) H/O prostate cancer (Z85.46) Active confirmed Problem Anxiety (32480660) Anxiety (F41.9) Active confi rmed Problem Hyperlipoproteinemia (9224452) Acquired hyperlipoproteinemia (E78.5) Active confirmed Problem Fatigue (56984285) Fatigue, unsp ecified type (R53.83) Active confirmed Problem Hypothyroidism (69543105) Hypothyroidism, unspecified type (E03.9) Active confirmed Problem Malignant tumor of prostate (214594133) Prostate cancer (C61) Active confirmed Problem Annual health maintenance examination (91121052) Annual physical exam (Z00.00) Active confirmed Problem Dyspnea (653259806) SOB (shortne ss of breath) (R06.02) Active confirmed Problem Seasonal allergy (819556136) Seasonal allergies (J30.2) Active confirmed Problem Prediabetes (839391851) Pre-diabetes (R73.03) Active confirmed Problem Diabetes mellitus screening (323333477) Diabetes mellitus screening (Z13.1) Active confirmed Problem Acute asthma (112973462) Acute asthma (J45.909) Active confirmed Problem History of malignant neoplasm of prostate (389814645) History of prostate cancer (Z85.46) Active confirmed Problem Vitamin B>12< deficiency anaemia (96820589) Anemia due to vitamin B12 deficiency, 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) Active confirmed Problem Acute stress disorde r (87194330) Stress reaction (F43.0) Active confirmed Problem Asthma (980428428) Asthma (J45.909) Active conf irmed Vital Signs Heart Rate 80 /min 11/29/2024 Oximetry 96 % 11/29/2024 Blood pressure diastolic 70 mm Hg 11/29/2024 Height 67 in 11/29/2024 Blood pressure systolic 120 mm Hg 11/29/2024 Weight 206 lbs 11/29/2024 BMI 32.26 kg/m2 11/29/2024 Encounters Encounter Location Date Provider Diagnosis [facility] [address] [facility] [address] [place], [place] 06/10/2024 GAVIN DUEÑAS Pre-diabetes R73.03 ; Annual physical exam Z00.00 ; Acquired hyperlipoproteinemia E78.5 and H/O prostate cancer Z85.[address] [facility] [address] [place], [place] 11/29/2024 JAEL RAMIREZ Severe persistent as thma with (acute) exacerbation J45.51 ; Wheezing R06.2 ; History of prostate cancer Z85.46 ; Prediabetes R73.03 and Encounter for examination of blood pressure without abnormal findings Z01.30 [facility] [address] [facility] [address] [place] [address] 03/05/2024 GAVIN DUEÑAS [facility] [address] [place], [place] 06/10/2024 GAVIN DUEÑAS [facility] [address] [place], [place] 10/05/2024 JAEL RAMIREZ [facility] [address] [place] [phone] 12/16/2024 GAVIN DUEÑAS Assessments Encounter Date Diagnosis (ICD Code) Assessment Notes Treatment Notes Treatment Clinical Notes Section Notes 06/10/2024 Annual physical exam (ICD-10 - Z00.00) [...] log exercise and discussed fitness Apps like [employer] which can help keep log off calories [...] log exercise and discussed fitness Apps like [employer] which can help keep log off calories [...] hemoglobin A1c and PSA on next visit. 11/29/2024 Severe persistent asthma with (acute) exacerbation (ICD-10 - J45.51) 64 year old male with a PMH of prostate cancer (resolved), eosinophillic asthma, prediabetes and seasonal allergies coming in for a 6 month f/u for his A1c. #PreDM: A1c in office today was 5.8% and reports he has been exercising daily and eating well. # Acute asthma exacerbation in setting of severe persistent asthma. He reported an asthma exacerbation that started 2 weeks ago, states he has been taking his Trellegy and ProAir as prescribed, increasing his DuoNeb use. He mistakenly Prednisone 150 mg on 11/26 with temporary relief. Upon physical exam he has auditory inspiratory and expiratory wheezing while sitting and as well as ascultated throughout all lung chavis bilateraly, without the use of accessory muscles. Encounraged Duoneb use TID, albuterol prn, Will Rx Prednisone taper 40 mg x 3 days, 30 mg x 3 days, 20 mg x 3 days, 10 mg x 3 days. Currently not on Dupixent, encouraged to follow up with butter grader. Will add Montelukast 10 mg HS short term. Plan at this time is to educate to keep up the regular exercising and dieting as his A1c and LDL cholesterol trending down with these lifestyle mods. . Chart, medications, labs, vital signs reviewed. Dictation was accomplished with the use of [employer] voice recognition software, prone to medical misidentifications and grammatical errors. This is unintentional and the practitioner does try to identify and correct these, but some could still be present. Please do not hesitate to contact practitioner for clarification. All questions answered to patients satisfaction. Patient verbalized understanding of diagnosis and treatments explained. To call sooner prior to next visit it any questions/concerns arise. 11/29/2024 Wheezing (ICD-10 - R06.2) 64 year old male with a PMH of prostate cancer (resolved), eosinophillic asthma, prediabetes and seasonal allergies coming in for a 6 month f/u for his A1c. #PreDM: A1c in office today was 5.8% and reports he has been exercising daily and eating well. # Acute asthma exacerbation in setting of severe persistent asthma. He reported an asthma exacerbation that started 2 weeks ago, states he has been taking his Trellegy and ProAir as prescribed, increasing his DuoNeb use. He mistakenly Prednisone 150 mg on 11/26 with temporary relief. Upon physical exam he has auditory inspiratory and expiratory wheezing while sitting and as well as ascultated throughout all lung chavis bilateraly, without the use of accessory muscles. Encounraged Duoneb use TID, albuterol prn, Will Rx Prednisone taper 40 mg x 3 days, 30 mg x 3 days, 20 mg x 3 days, 10 mg x 3 days. Currently not on Dupixent, encouraged to follow up with butter grader. Will add Montelukast 10 mg HS short term. Plan at this time is to educate to keep up the regular exercising and dieting as his A1c and LDL cholesterol trending down with these lifestyle mods. . Chart, medications, labs, vital signs reviewed. Dictation was accomplished with the use of [employer] voice recognition software, prone to medical misidentifications and grammatical errors. This is unintentional and the practitioner does try to identify and correct these, but some could still be present. Please do not hesitate to contact practitioner for clarification. All questions answered to patients satisfaction. Patient verbalized understanding of diagnosis and treatments explained. To call sooner prior to next visit it any questions/concerns arise. 06/10/2024 Acquired hyperlipoproteinemia (ICD-10 - E78.5) Patient [...] log exercise and discussed fitness Apps like [employer] which can help keep log off calories [...] hemoglobin A1c and PSA on next visit. 11/29/2024 History of prostate cancer (ICD-10 - Z85.46) 64 year old male with a PMH of prostate cancer (resolved), eosinophillic asthma, prediabetes and seasonal allergies coming in for a 6 month f/u for his A1c. #PreDM: A1c in office today was 5.8% and reports he has been exercising daily and eating well. # Acute asthma exacerbation in setting of severe persistent asthma. He reported an asthma exacerbation that started 2 weeks ago, states he has been taking his Trellegy and ProAir as prescribed, increasing his DuoNeb use. He mistakenly Prednisone 150 mg on 11/26 with temporary relief. Upon physical exam he has auditory inspiratory and expiratory wheezing while sitting and as well as ascultated throughout all lung chavis bilateraly, without the use of accessory muscles. Encounraged Duoneb use TID, albuterol prn, Will Rx Prednisone taper 40 mg x 3 days, 30 mg x 3 days, 20 mg x 3 days, 10 mg x 3 days. Currently not on Dupixent, encouraged to follow up with butter grader. Will add Montelukast 10 mg HS short term. Plan at this time is to educate to keep up the regular exercising and dieting as his A1c and LDL cholesterol trending down with these lifestyle mods. . Chart, medications, labs, vital signs reviewed. Dictation was accomplished with the use of [employer] voice recognition software, prone to medical misidentifications and grammatical errors. This is unintentional and the practitioner does try to identify and correct these, but some could still be present. Please do not hesitate to contact practitioner for clarification. All questions answered to patients satisfaction. Patient verbalized understanding of diagnosis and treatments explained. To call sooner prior to next visit it any questions/concerns arise. 06/10/2024 H/O prostate cancer (ICD-10 - Z85.46) [...] log exercise and discussed fitness Apps like [employer] which can help keep log off calories [...] hemoglobin A1c and PSA on next visit. 11/29/2024 Prediabetes (ICD-10 - R73.03) 64 year old male with a PMH of prostate cancer (resolved), eosinophillic asthma, prediabetes and seasonal allergies coming in for a 6 month f/u for his A1c. #PreDM: A1c in office today was 5.8% and reports he has been exercising daily and eating well. # Acute asthma exacerbation in setting of severe persistent asthma. He reported an asthma exacerbation that started 2 weeks ago, states he has been taking his Trellegy and ProAir as prescribed, increasing his DuoNeb use. He mistakenly Prednisone 150 mg on 11/26 with temporary relief. Upon physical exam he has auditory inspiratory and expiratory wheezing while sitting and as well as ascultated throughout all lung chavis bilateraly, without the use of accessory muscles. Encounraged Duoneb use TID, albuterol prn, Will Rx Prednisone taper 40 mg x 3 days, 30 mg x 3 days, 20 mg x 3 days, 10 mg x 3 days. Currently not on Dupixent, encouraged to follow up with butter grader. Will add Montelukast 10 mg HS short term. Plan at this time is to educate to keep up the regular exercising and dieting as his A1c and LDL cholesterol trending down with these lifestyle mods. . Chart, medications, labs, vital signs reviewed. Dictation was accomplished with the use of [employer] voice recognition software, prone to medical misidentifications and grammatical errors. This is unintentional and the practitioner does try to identify and correct these, but some could still be present. Please do not hesitate to contact practitioner for clarification. All questions answered to patients satisfaction. Patient verbalized understanding of diagnosis and treatments explained. To call sooner prior to next visit it any questions/concerns arise. 11/29/2024 Encounter for examination of blood pressure without abnormal findings (ICD-10 - Z01.30) 64 year old male with a PMH of prostate cancer (resolved), eosinophillic asthma, prediabetes and seasonal allergies coming in for a 6 month f/u for his A1c. #PreDM: A1c in office today was 5.8% and reports he has been exercising daily and eating well. # Acute asthma exacerbation in setting of severe persistent asthma. He reported an asthma exacerbation that started 2 weeks ago, states he has been taking his Trellegy and ProAir as prescribed, increasing his DuoNeb use. He mistakenly Prednisone 150 mg on 11/26 with temporary relief. Upon physical exam he has auditory inspiratory and expiratory wheezing while sitting and as well as ascultated throughout all lung chavis bilateraly, without the use of accessory muscles. Encounraged Duoneb use TID, albuterol prn, Will Rx Prednisone taper 40 mg x 3 days, 30 mg x 3 days, 20 mg x 3 days, 10 mg x 3 days. Currently not on Dupixent, encouraged to follow up with butter grader. Will add Montelukast 10 mg HS short term. Plan at this time is to educate to keep up the regular exercising and dieting as his A1c and LDL cholesterol trending down with these lifestyle mods. . Chart, medications, labs, vital signs reviewed. Dictation was accomplished with the use of [employer] voice recognition software, prone to medical misidentifications and grammatical errors. This is unintentional and the practitioner does try to identify and correct these, but some could still be present. Please do not hesitate to contact practitioner for clarification. All questions answered to patients satisfaction. Patient verbalized understanding of diagnosis and treatments explained. To call sooner prior to next visit it any questions/concerns arise. Plan Of Treatment Pending Test Test Name [...] LIPID PANEL, STANDARD 05/12/2023 LIPID PANEL, STANDARD 11/29/2024 LIPID PANEL, STANDARD 11/10/2023 LIPID PANEL, STANDARD 06/10/2024 COMPREHENSIVE METABOLIC PANEL 11/29/2024 COMPREHENSIVE METABOLIC PANEL 11/10/2023 COMPREHENSIVE METABOLIC PANEL 03/15/2022 COMPREHENSIVE METABOLIC PANEL 05/12/2023 COMPREHENSIVE METABOLIC PANEL 09/21/2021 CBC (H/H, RBC, INDICES, WBC, PLT) 2020 CBC (INCLUDES DIFF/PLT) 09/21/2021 CBC (INCLUDES DIFF/PLT) 05/12/2023 CBC (INCLUDES DIFF/PLT) 03/15/2022 CBC (INCLUDES DIFF/PLT) 11/10/2023 CBC (INCLUDES DIFF/PLT) 11/29/2024 URINALYSIS, COMPLETE 11/29/2024 URINALYSIS, COMPLETE 11/10/2023 URINALYSIS, COMPLETE 09/21/2021 URINALYSIS, COMPLETE 03/15/2022 SED RATE BY MODIFIED DEVIERGREN 10/06/19 24 HEMOGLOBIN A1c 11/29/2024 HEMOGLOBIN A1c 03/15/2022 HEMOGLOBIN A1c 09/21/2021 HEMOGLOBIN A1c 09/11/2022 VITAMIN B12 11/29/2024 PSA (FREE AND TOTAL) 06/10/2024 PSA (FREE AND TOTAL) 10/06/2023 PSA (FREE AND TOTAL) 03/15/2022 TSH W/REFLEX TO FT4 11/29/2024 VITAMIN D,25-OH,TOTAL,IA 11/29/2024 VITAMIN D,25-OH,TOTAL,IA 10/06/2023 LYME AB SCREEN 10/06/2023 PPC Hemoglobin A1C 11/29/2024 Insurance Providers Payer Name Payer Address Payer Phone Subscriber Number Group Number Insured Name Patient Relationship to Insured Coverage Start Date Coverage End Date [facility] [address] [place] [address] [id number] LION [employer] Self - patient is the insured 5 Medical (General) History Medical History History ICD Code History of prostate cancer Z85.46 Prediabetes R73.03 Severe persistent asthma, uncomplicated J45.50 Nasal polyps J33.9 Seasonal allergies J30.2 Surgical History Surgery Date(Month/Year) Prostatectomy Nasal polypectomy 2003 Splenectomy 1989 Hospitalization History Reason Date(Month/Year) Influenza A/Syncope 04/2019
--- OUTSIDE RECORDS SUMMARY | 2025-01-07 17:16 | XMS_ITS ---
Author Name [facility] Organization Unknown Care Team Organization Name Specialty Phone Email Start Date End Da te [facility] 04/09/2023 4 [facility] 01/02/2023 4
--- OUTSIDE RECORDS SUMMARY | 2025-01-07 17:16 | XMS_ITS | Clinical Summary ---
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 DX:Histor y of splenectomy Prostate cancer ([facility] V24 , [facility] V28) 03/22/2017 DX:Prostate cancer (HCC) Bronchiectasis ([facility] V24, [facility] V28) 06/18/2017 DX:Bronchiectasis (HCC) History of prostate cancer 03/22/2017 DX:Hi story of prostate cancer Multiple pulmonary nodules 12/31/2016 DX:Mu ltiple pulmonary nodules Severe persistent asthma wit hout complication ([facility] V28) 06/18/2017 DX:Severe persistent asthma without complication Social History Tobacco Use Types Packs/Day Years Used Date Smoking Tobacco: Never Smokeless Tobacco: Never Alcohol Use Standard Drinks/Week Comments Yes 0 (1 standard drink = 0.6 oz pur e alcohol) Sex and Gender Information Value Date Recorded Sex Assigned at Not on file Legal Sex Male 6:59 PM EST Gender Identity Not on file Sexual Orientation Not on file Obstetrics History Plan of Treatment Health Maintenance Due Date Last Done Comments HIB Vaccines (1 of 1 - Risk 1-dose series) 11/06/1963 Meningococcal ACWY Vaccine (1 - Risk 2-dose series) 1964 Meningococcal B Vaccine (1 of 5 - Increased Risk) 1972 Colorectal Cancer Screening: Colonoscopy 04/10/2022 HIV Screening 04/10/2022 Hepatitis C Screening 04/10/2022 Social Influencers of Health Screening 04/10/2022 Depression Screening 04/28/2024 Pneumococcal Vaccine: 50+ Years (2 of 2 - PCV) 05/24/2024 05/24/2023 Hypertension/CHF/CAD Annual BMP Blood Test 11/16/2024 COVID-19 Vaccine ( season) 2024 02/21/2023, 01/21/2022, 03/02/2021, Additional history exists Influenza Vaccine (#1) 2024 , 02/02/2023, 01/21/2022, Additional history exists Cholesterol Screening (Lipid Panel) 11/15/2029 11/15/2024 DTaP,Tdap,and Td Vaccines (2 - Td or Tdap) 01/03/2030 01/04/2020 Zoster Vaccines Completed 08/11/2018, 03/24/2018 RSV Immunization Adult Patients Completed 04/27/2024 HPV Vaccines Aged Out No longer eligi ble based on patient's age to complete this topic Hepatitis A Vaccines Aged Out No long er eligible based on patient's age to complete this topic Hepatitis B Vaccines Aged Out No long er eligible based on patient's age to complete this topic IPV Vaccines Aged Out No longer eligi ble based on patient's age to complete this topic MMR Vaccines Aged Out No longer eligi ble based on patient's age to complete this topic RSV Immunization Patients Under 20 months Aged Out No longer eligible based on patient's age to complete this topic Varicella Vaccines Aged Out No longer eligible based on patient's age to complete this topic Procedures Procedure Name Priority Date/Time Associated Diagnosis Comments LIPID PANEL WITH REFLEX TO DIRECT LDL Routine 11/15/2024 10:18 AM EDT Personal history of prostate cancer Hyperlipemia PSA TOTAL, FREE AND COMPLEXED, DIAGNOSTIC Routine 11/15/2024 10:18 AM EDT Personal history of prostate cancer Hyperlipemia from Last 3 Months Results * PSA total, free and complexed (11/15/2024 10:18 AM EDT) PSA <0.06 0.00 - 4.00 ng/mL LAB CHEMISTRY METHOD 11/15/2024 2:34 PM EDT [facility] PSA, Complexed <0.07 0.00 - 3.00 ng/mL LAB CHEMISTRY METHOD 11/15/2024 2:34 PM EDT [facility] PSA, Free LAB CHEMISTRY METHOD 11/15/2024 2:34 PM EDT [facility] PSA, Free Pct LAB CHEMISTRY METHOD 11/15/2024 2:34 PM EDT [facility] Blood Venous blood specimen / Unknown Venipuncture / Unknown 11/15/2024 10:18 AM EDT 11/15/2024 10:36 AM EDT [facility] - 11/15/2024 2:34 PM EDT Free PSA is a calculated value. The diagnostic usefulness of % free PSA has not been established in patients with Total PSA below 2.6 or above 10 ng/mL. This test was performed using the Centaur Chemiluminescent method. PSA values obtained with other methods cannot be used interchangeably. us Kavya Manrique MD LAB BLOOD ORDERABLES Final Resul t [facility] [address] [place] [address], * (ABNORMAL) Lipid panel with reflex to direct LDL (11/15/2024 10:18 AM EDT) Cholesterol 176 0 - 200 mg/dL LAB CHEMISTRY METHOD 11/15/2024 12:48 PM EDT [facility] Triglycerides 103 0 - 150 mg/dL LAB CHEMISTRY METHOD 11/15/2024 12:48 PM EDT [facility] HDL 46 >=40 mg/dL LAB CHEMISTRY METHOD 11/15/2024 12:48 PM EDT [facility] LDL Calculated 109(H) 0 - 100 mg/dL LAB CHEMISTRY METHOD 11/15/2024 12:48 PM EDT [facility] VLDL Cholesterol Jameel 20.6 mg/dL LAB CHEMISTRY METHOD 11/15/2024 12:48 PM EDT [facility] Non HDL Chol. 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 Health Care Decision (hx) 02/27/2016 AD PITTS DIRECTIVE Health Care Decision (hx) 02/27/2016 AD PITTS DIRECTIVE Health Care Decision (hx) 02/27/2016 AD PITTS DIRECTIVE Health Care Decision (hx) 02/27/2016 AD PITTS DIRECTIVE Health Care Decision (hx) 02/27/2016 AD PITTS DIRECTIVE Health Care Decision (hx) 02/27/2016 AD PITTS DIRECTIVE Health Care Decision (hx) 02/27/2016 AD PITTS DIRECTIVE Health Care Decision (hx) 02/27/2016 AD PITTS DIRECTIVE Care Teams Flower Grower Relationship Specialty Start Date End Date Anthony Ibarra MD [address] [facility] [address] [place], [place] PCP - General Internal Medicine 04/01/17
--- OUTSIDE RECORDS SUMMARY | 2025-01-07 17:16 | XMS_ITS | Clinical Summary ---
Author Organization [facility] Address [address] [id number] Care Team Providers Care Supervisor Drying Name Role Phone Anthony Ibarra MD Primary Care Provider [phone]- [phone] Allergies Active Allergy Reactions Criticality Noted Date Comments Aspirin 08/18/2017 Naproxen 08/18/2017 Medications Medication Sig Dispensed Refills Start Date End Date Status sildenafil (VIAGRA) 100 MG tablet Take 100 mg by mouth daily as needed for erectile dysfunction. 0 Active albuterol (PROVENTIL) (2.5 MG/3ML) 0.083% nebulizer solution Take 2.5 mg by nebulization every 6 (six) hours as needed for wheezing. 0 Active Fluticasone Furoate-Vilanterol (BREO ELLIPTA) 200-25 MCG/INH AEPB Inhale into the lungs. 0 Active clopidogrel (PLAVIX) 75 MG tablet Take 75 mg by mouth daily. 0 Active beclomethasone dipropionate (QVAR) 40 MCG/ACT inhaler Inhale into the lungs. 0 Active verapamil (ISOPTIN) 2.5 MG/ML injection Inject 0.5 mcg/kg into the vein once. 0 Active Active Problems Problem Noted Date Diagnosed Date Peyronie disease 06/18/2017 ED (erectile dysfunction) 06/03/2016 Prostate CA Family History Medical History Relation Name Comments Stroke Mother Diabetes Other GI problems Other Relation Name Status Comments Mother Other Social History Tobacco Use Types Packs/Day Years Used Date Smoking Tobacco: Never Smokeless Tobacco: Never Alcohol Use Standard Drinks/Week Comments Yes 0 (1 standard drink = 0.6 oz pur e alcohol) Sex and Gender Information Value Date Recorded Sex Assigned at Not on file Gender Identity Not on file Sexual Orientation Not on file Job Start Date Occupation Industry Not on file Not on file Not on file Plan of Treatment Health Maintenance Due Date Last Done Comments Hepatitis C Screening 1962 COVID-19 Vaccine (#1) 08/07/1967 Pneumococcal Vaccine (1 of 2 - PCV) 1968 Depression Screening 1974 Preventative Health Evaluation 1980 DTap / Tdap / Td (1 - Tdap) 1981 Shingrix-Zoster Vaccine (1 of 2) 1981 Colon Cancer Screening (Colonoscopy) 08/07/2007 Influenza Vaccine (#1) 2024 02/11/2018 RSV Adult > 60+ Yrs or Pregn ant (1 - 1-dose 75+ series) 2037 Hepatitis B Vaccines Aged Out No long er eligible based on patient's age to complete this topic RSV Ped < 20 months Aged Out No longe r eligible based on patient's age to complete this topic Care Teams Supervisor Drying Relationship Specialty Start Date End Date Anthony Ibarra MD [address] [place] [address] PCP - General Computer Network Specialist 08/18/17
== END 2025-01-07 14:54 | disposition home or self-care (01) ==
LOC: HO.HPS 14:23
PROVIDERS: PCP Internal Medicine; Visit Provider Hospitalist
DX: R91.8 Other nonspecific abnormal finding of lung field (principal); J33.9 Nasal polyp, unspecified; J45.50 Severe persistent asthma, uncomplicated; G47.33 Obstructive sleep apnea (adult) (pediatric); J44.89 Other specified chronic obstructive pulmonary disease
CPT/HCPCS: 99214

== ENCOUNTER → 2025-01-07 14:22 | Outpatient (BNVA) | payer OTHER, SELFPAY | PROVIDERS: PCP Internal Medicine; Visit Provider Hospitalist | DX: J45.50 Severe persistent asthma, uncomplicated (principal); K21.9 Gastro-esophageal reflux disease without esophagitis; J44.9 Chronic obstructive pulmonary disease, unspecified; J33.9 Nasal polyp, unspecified; R91.8 Other nonspecific abnormal finding of lung field | CPT/HCPCS: 99212 ==